=== PATIENT | male | born 1970 | race Caucasian/White ===

== ENCOUNTER 2017-10-08 19:22 | Observation (INO) | payer SELFPAY ==
[2017-10-08 19:43] VITALS: BP 186/99; PULSE 99; RESP 18; TEMP 97.7; O2SAT 97
[2017-10-08] MEDS ORDERED: METF500T PO (19:51)
[2017-10-08] MEDS ORDERED: LISI10TA3 PO (20:06)
[2017-10-08] MEDS ORDERED: SODIUM CHLOR 0.9% 1000 ML INJ 1,000 ML IV ONE ×2 (20:30→23:30)
[2017-10-08] MEDS ORDERED: ASPIRIN 81 MG CHEW TAB CHEW ONE (20:30)
[2017-10-08] MEDS ORDERED: INSULIN HUMAN REGULAR 1,000 UNITS/10 ML VIAL IV PUSH ONE (20:30)
[2017-10-08] MEDS ORDERED: SODIUM CHLORIDE 0.9% FLUSH 10 ML FLUSH IVF PRN (20:30)
[2017-10-08] MEDS ORDERED: NITROGLYCERIN 0.4 MG SL 25 TABS/BTL SL ONE (20:30)
[2017-10-08] MEDS ORDERED: ONDANSETRON ODT 4 MG TAB PO ONE (20:30)
--- NOTE | 2017-10-08 20:34 | PD ---
HPI Chief Complaint: Diabetic Time Seen by Provider: 20:26 Travel History International Travel<30 days: Yes Contact w/Intl Traveler<30days: Yes Name of Country Traveled to: [facility] Traveled to known affect area: Yes History of Present Illness HPI 47-year-old male presents to the emergency department by private transportation the care of his friend for evaluation of high blood sugar and high blood pressure and chest pain. Patient is visiting from [facility] and has been here for 1 month. Upon entry into denies states reportedly his medications were confiscated and not return to him. Patient has been off his blood pressure medication and his diabetic medication for a month and will be here for 2-3 more months. Patient has not stopped a nearby urgent care to have a prescription refill. Due to feeling flushed and not feeling well today with chest tightness and lower abdominal discomfort episode of vomiting decided to go to the store purchase a glucometer and checked his blood sugar which was identified to be 600. Patient checked it again it was 500 so decided to come to the emergency room as he was having high blood sugar did not have medication felt poorly and had chest pain and lower abdominal pain. Patient rates his discomfort as moderate. Patient is unable to identify exacerbating or alleviating factors. Patient denies hematemesis coffee-ground emesis melena; patient's had no fever chills; chest discomfort is not pleuritic in nature and is not associated with shortness of breath or hemoptysis. 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 PFSH Past Medical History Narrative Medical Hypertension diabetes; no tobacco; nursing notes reviewed Diabetes: Yes Patient Takes Glucophage: Yes Social History Alcohol Use: No Tobacco Use: No Substance Use: No Allergies-Medications (Allergen,Severity, Reaction): Coded Allergies: No Known Allergies (Unverified , 10/08/17) Reported Meds & Prescriptions Reported Meds & Active Scripts Active Reported Lisinopril 10 Mg Tab 10 Mg PO DAILY Metformin (Metformin HCl) 500 Mg Tab 500 Mg PO BIDPC Review of Systems Except as stated in HPI: all other systems reviewed are Neg General / Constitutional: No: Fever, Chills HENT: No: Congestion Cardiovascular: Positive: Chest Pain or Discomfort, No: Palpitations, Diaphoresis Respiratory: No: Shortness of Breath, Hemoptysis, Pleuritic Pain Gastrointestinal: Positive: Nausea, Vomiting, Abdominal Pain (lower), No: Hematemesis, Hematochezia Genitourinary: No: Dysuria, Flank Pain Musculoskeletal: No: Myalgias, Arthralgias, Edema, Pain Skin: No Rash Neurologic: No: Weakness, Dizziness, Syncope Psychiatric: No: Anxiety Hematologic/Lymphatic: No: Easy Bruising Physical Exam Narrative GENERAL: Well-developed well-nourished Mosotho-speaking male in no acute distress no respiratory distress SKIN: Warm and dry. HEAD: Normocephalic. EYES: No scleral icterus. No injection or drainage. NECK: Supple, trachea midline. No JVD or lymphadenopathy. CARDIOVASCULAR: Regular rate and rhythm without murmurs, gallops, or rubs. RESPIRATORY: Breath sounds equal bilaterally. No accessory muscle use. GASTROINTESTINAL: Abdomen soft, non-tender, nondistended. Readily reducible umbilical hernia. MUSCULOSKELETAL: No cyanosis, or edema. Radial dorsalis pedis pulses 2+ to palpation bilaterally. BACK: Nontender without obvious deformity. No CVA tenderness. Data Data Last Documented VS Vital Signs Date Time Temp Pulse Resp B/P (MAP) Pulse Ox O2 Delivery O2 Flow Rate FiO2 10/08/17 23:28 90 18 138/86 (103) 97 Room Air 10/08/17 19:43 97.7 Orders Orders Electrocardiogram (10/08/17 20:26) Complete Blood Count With Diff (10/08/17 20:26) Comprehensive Metabolic Panel (10/08/17 20:26) Magnesium (Mg) (10/08/17 20:26) Beta Hydroxybutyrate (Acetone) (10/08/17 20:26) Urinalysis - C+S If Indicated (10/08/17 20:26) Chest, Single Ap (10/08/17 20:26) Blood Glucose (10/08/17 20:26) Ecg Monitoring (10/08/17 20:26) Iv Access Insert/Monitor (10/08/17 20:26) Oximetry (10/08/17 20:26) NPO (10/08/17 20:26) Sodium Chloride 0.9% Flush (Ns Flush) (10/08/17 20:30) Troponin I (10/08/17 20:26) Sodium Chlor 0.9% 1000 Ml Inj (Ns 1000 M (10/08/17 20:30) Insulin Human Regular Inj (Novolin R Inj (10/08/17 20:30) Nitroglycerin Sl (Nitrostat Sl) (10/08/17 20:30) Aspirin Chew (Aspirin Chew) (10/08/17 20:30) Ondansetron Odt (Zofran Odt) (10/08/17 20:30) Lipase (10/08/17 20:26) Blood Glucose (10/08/17 20:34) Sodium Chlor 0.9% 1000 Ml Inj (Ns 1000 M (10/08/17 23:30) Ct Abd/Pel W Iv Contrast(Rout) (10/08/17 ) Iohexol 350 Inj (Omnipaque 350 Inj) (10/08/17 23:46) Basic Metabolic Panel (Bmp) (10/09/17 00:08) Troponin I (10/09/17 00:08) Ckmb (Isoenzyme) Profile (10/09/17 00:08) Electrocardiogram (10/09/17 ) Beta Hydroxybutyrate (Acetone) (10/09/17 01:09) CKMB (10/09/17 00:35) CKMB% (10/09/17 00:35) Sodium Chlor 0.9% 1000 Ml Inj (Ns 1000 M (10/09/17 02:00) Admit Order (Ed Use Only) (10/09/17 ) Cash Grain Farmer / Telemetry EARL.Q8H (10/09/17 02:00) Diet 1999 Ada Cons Carb (10/09/17 Breakfast) Activity Oob With Assistance (10/09/17 02:00) Notify Dr: Other (10/09/17 02:00) Activity Bed Rest With Brp (10/09/17 02:00) Vital Signs (Adult) Q4H (10/09/17 02:00) Cardiac Rhythm .As Directed (10/09/17 02:00) Notify Dr: Other .PRN (10/09/17 02:00) Notify Parameters (10/09/17 02:00) Resp Oxygen Nasal Cannula (10/09/17 ) Ckmb (Isoenzyme) Profile (10/09/17 03:30) Ckmb (Isoenzyme) Profile (10/09/17 06:30) Troponin I (10/09/17 03:30) Troponin I (10/09/17 06:30) Electrocardiogram (10/09/17 03:30) Electrocardiogram (10/09/17 06:30) ^ Obtain (10/09/17 02:00) Sodium Chloride 0.9% Flush (Ns Flush) (10/09/17 02:00) Sodium Chloride 0.9% Flush (Ns Flush) (10/09/17 09:00) Nitroglycerin Sl (Nitrostat Sl) (10/09/17 02:00) Cash Grain Farmer / Telemetry EARL.Q8H (10/09/17 02:00) Low Novolin-R Scale (10/09/17 08:00) Labs Laboratory Tests Test 10/08/17 20:40 10/08/17 23:30 10/09/17 00:35 White Blood Count 9.3 TH/MM3 Red Blood Count 4.70 MIL/MM3 Hemoglobin 15.4 GM/DL Hematocrit 44.3 % Mean Corpuscular Volume 94.1 FL Mean Corpuscular Hemoglobin 32.6 PG Mean Corpuscular Hemoglobin Concent 34.7 % Red Cell Distribution Width 13.6 % Platelet Count 125 TH/MM3 Mean Platelet Volume 10.1 FL Neutrophils (%) (Auto) 69.5 % Lymphocytes (%) (Auto) 15.1 % Monocytes (%) (Auto) 13.6 % Eosinophils (%) (Auto) 1.1 % Basophils (%) (Auto) 0.7 % Neutrophils # (Auto) 6.4 TH/MM3 Lymphocytes # (Auto) 1.4 TH/MM3 Monocytes # (Auto) 1.3 TH/MM3 Eosinophils # (Auto) 0.1 TH/MM3 Basophils # (Auto) 0.1 TH/MM3 CBC Comment DIFF FINAL Differential Comment Blood Urea Nitrogen 14 MG/DL 13 MG/DL Creatinine 1.12 MG/DL 0.88 MG/DL Random Glucose 485 MG/DL 297 MG/DL Total Protein 9.0 GM/DL Albumin 3.7 GM/DL Calcium Level 10.6 MG/DL 8.6 MG/DL Magnesium Level 2.1 MG/DL Alkaline Phosphatase 136 U/L Aspartate Amino Transf (AST/SGOT) 96 U/L Alanine Aminotransferase (ALT/SGPT) 133 U/L Total Bilirubin 1.7 MG/DL Sodium Level 130 MEQ/L 137 MEQ/L Potassium Level 4.1 MEQ/L 3.8 MEQ/L Chloride Level 93 MEQ/L 101 MEQ/L Carbon Dioxide Level 21.5 MEQ/L 22.3 MEQ/L Anion Gap 16 MEQ/L 14 MEQ/L Estimat Glomerular Filtration Rate 71 ML/MIN 94 ML/MIN Troponin I LESS THAN 0.02 NG/ML LESS THAN 0.02 NG/ML Lipase 482 U/L B-Hydroxybutyrate 2.27 MMOL/L 2.08 MMOL/L Urine Color YELLOW Urine Turbidity CLEAR Urine pH 5.5 Urine Specific [place] 1.040 Urine Protein TRACE mg/dL Urine Glucose (UA) 1000 mg/dL Urine Ketones 40 mg/dL Urine Occult Blood NEG Urine Nitrite NEG Urine Bilirubin NEG Urine Urobilinogen LESS THAN 2.0 MG/DL Urine Leukocyte Esterase NEG Urine RBC LESS THAN 1 /hpf Urine WBC 1 /hpf Urine Mucus FEW /lpf Microscopic Urinalysis Comment CULT NOT INDICATED Total Creatine Kinase 497 U/L Creatine Kinase MB 4.8 NG/ML Creatine Kinase MB % 1.0 % [facility] Medical Decision Making Medical Screen Exam Complete: Yes Emergency Medical Condition: Yes Medical Record Reviewed: Yes Interpretation(s) EKG normal sinus rhythm rate 80 nonspecific lateral T-wave changes EKG normal sinus rhythm rate 98 lateral T-wave flattening consider ischemia Last Impressions Chest X-Ray 10/08/172025 Signed Impressions: CONCLUSION: Negative examination. Abdomen/Pelvis CT 10/08/17 0000 Signed Impressions: CONCLUSION: 1. No acute abnormality seen. 2. Hepatic steatosis. 3. Minimal hiatal hernia. CBC & BMP Diagram 10/08/17 20:40 Total Protein 9.0 H, Albumin 3.7, Calcium Level 10.6 H, Magnesium Level 2.1, Alkaline Phosphatase 136 H, Aspartate Amino Transf (AST/SGOT) 96 H, Alanine Aminotransferase (ALT/SGPT) 133 H, Total Bilirubin 1.7 H 10/09/17 00:35 Calcium Level 8.6 # Vital Signs Date Time Temp Pulse Resp B/P (MAP) Pulse Ox O2 Delivery O2 Flow Rate FiO2 10/08/17 23:28 90 18 138/86 (103) 97 Room Air 10/08/17 21:34 20 98 Room Air 10/08/17 21:30 93 20 148/84 (105) 98 Room Air 6/2/18 19:43 97.7 99 18 186/99 (128) 97 bhb: 2.27; repeat bhb: 2.08, elevated resolving Differential Diagnosis Hyperglycemia, uncontrolled diabetes, DKA, chest pain, atypical chest pain, uncontrolled hypertension, hypertensive urgency, ACS, RI, PE Narrative Course Patient placed on library monitor with continuous pulse oximetry IV access obtained specimens collections of resulting; patient given IV fluids normal saline bolus with regular insulin 8 units IV and sublingual nitroglycerin 1 as well as aspirin 162 mg chewed and Zofran 4 mg sublingual. Specimens sent for resulting EKG ordered Chest pain improved after SL NTG Patient with chest pain with uncontrolled hypertension diabetes and dyslipidemia as risk factors male age 47; diabetes and hypertension uncontrolled as he has been off of his medication 1 month. However due to complaint of chest pain with chest pain resolving after sublingual nitroglycerin with aforementioned risk factors will admit for observation for serial cardiac enzymes and ongoing diabetic management. Patient's blood sugar responding well to initial dose of IV insulin and fluid hydration blood pressure has also normalized. Case discussed with on-call medicine service at this point time blood pressure would not be an indication for them to admit and diabetes is not indication for them to admit therefore remaining indication for observation admission is chest pain with risk factors for cardiac disease and meets [facility] protocol criterion. Will admit patient for observation for serial cardiac enzymes time for his next set of cardiac enzymes will be performed now and then will admit subsequently to chest pain center per protocol. Repeat EKG continues to show nonspecific lateral T-wave changes; repeat troponin I is less than 0.02; initial serum acetone 2.27 elevated however is decreasing to 2.08 and patient's anion gap is resolved and bicarb is in normal range on repeat BMP Patient had mild elevation of LFTs and lipase level however CT abdomen pelvis reveals no acute intra-abdominal abnormality no gallbladder wall thickening or pericholecystic fluid ductal dilatation or gallbladder dilatation and no peripancreatic edema or fluid Physician Communication Physician Communication discussed with [facility] service -- [facility] Diagnosis Primary Impression: Chest pain Additional Impressions: Diabetes HTN (hypertension) Jocelyn Neal MD Oct 08, 2017 20:33
[2017-10-08 20:57] LABS: AUTOMATED NEUTROPHIL # 6.4 TH/MM3 (1.8-7.7); BASOPHIL # 0.1 TH/MM3 (0-0.2); BASOPHIL % 0.7 % (0.0-2.0); EOSINOPHIL # 0.1 TH/MM3 (0-0.4); EOSINOPHIL % 1.1 % (0.0-4.0); HEMATOCRIT 44.3 % (39.0-51.0); HEMOGLOBIN 15.4 GM/DL (13.0-17.0); LYMPH % 15.1 % (9.0-44.0); LYMPHOCYTE # 1.4 TH/MM3 (1.0-4.8); MEAN CELL VOLUME 94.1 FL (80.0-100.0); MEAN CORPUSCULAR HEMOGLOBIN 32.6 PG (27.0-34.0); MEAN CORPUSCULAR HGB CONC 34.7 % (32.0-36.0); MEAN PLATELET VOLUME 10.1 FL (7.0-11.0); MONO % 13.6 % (0.0-8.0); MONOCYTE # 1.3 TH/MM3 (0-0.9); NEUT % 69.5 % (16.0-70.0); PLATELET COUNT 125 TH/MM3 (150-450); RED CELL DISTRIBUTION WIDTH 13.6 % (11.6-17.2); WHITE BLOOD COUNT 9.3 TH/MM3 (4.0-11.0)
[2017-10-08 21:30] VITALS: BP 148/84; PULSE 93; RESP 20; O2SAT 98
[2017-10-08 21:34] VITALS: RESP 20; O2SAT 98
[2017-10-08 21:47] LABS: ALBUMIN 3.7 GM/DL (3.4-5.0); ALKALINE PHOSPHATASE 136 U/L (45-117); ALT (GPT) 133 U/L (12-78); AST (GOT) 96 U/L (15-37); BICARBONATE 21.5 MEQ/L (21.0-32.0); BLOOD UREA NITROGEN 14 MG/DL (7-18); CALCIUM 10.6 MG/DL (8.5-10.1); CHLORIDE 93 MEQ/L (98-107); CREATININE 1.12 MG/DL (0.60-1.30); GLOMERULAR FILTRATION RATE 71 ML/MIN (>89); MAGNESIUM 2.1 MG/DL (1.5-2.5); SODIUM (NA) 130 MEQ/L (136-145); TOTAL BILIRUBIN ADULT 1.7 MG/DL (0.2-1.0); TROPONIN I LESS THAN 0.02 NG/ML (0.02-0.05)
[2017-10-08 21:50] LABS: GLUCOSE,RANDOM 485 MG/DL (74-106)
--- NOTE | 2017-10-08 21:57 | RADRPT ---
EXAM DATE: 10/08/2017 9:43 PM EDT AGE/SEX: 47 years / Male INDICATIONS: Vomiting. CLINICAL DATA: This is the patient's initial encounter. Patient reports that signs and symptoms have been present for 1 day and indicates a pain score of Nonresponsive. MEDICAL/SURGICAL HISTORY: Diabetes. . Back surgery. COMPARISON: No prior [facility] exams available for comparison. FINDINGS: A single AP view of the chest demonstrates the lungs to be symmetrically aerated without evidence of mass, infiltrate or effusion. The cardiomediastinal contours are unremarkable. Osseous structures a re intact. CONCLUSION: Negative examination. Electronically signed by: Lenin Jose MD 10/08/2017 9:56 PM EDT
[2017-10-08 23:28] VITALS: BP 138/86; PULSE 90; RESP 18; O2SAT 97
[2017-10-08] MEDS ORDERED: IOHEXOL 350 MG/ML 10 ML VIAL (for RAD DIAG) IVCONTRAST ONE (23:46)
[2017-10-09] VITALS (7 sets, daily range): BP systolic 139–158; BP diastolic 82–97; PULSE 70–82; RESP 16–19; TEMP 97–98.8; O2SAT 94–97
--- NOTE | 2017-10-09 00:06 | RADRPT ---
EXAM DATE: 10/08/2017 11:59 PM EDT AGE/SEX: 47 years / Male INDICATIONS: Abdomen pain. CLINICAL DATA: This is the patient's initial encounter. Patient reports that signs and symptoms have been present for 1 day and indicates a pain score of 7/10. MEDICAL/SURGICAL HISTORY: Diabetes mellitus type II. . ORAL CONTRAST: No oral contrast ingested. RADIATION DOSE: 14.92 CTDI (mGy) COMPARISON: No prior [facility] exams available for comparison. TECHNIQUE: Multiple contiguous axial images were obtained through the abdomen and pelvis following b olus infusion of 90 ml Omnipaque 350 (iohexol) nonionic water-soluble contrast as a single exam dos e. No oral contrast ingested. Using automated exposure control and adjustment of the mA and/or kV ac cording to patient size, the radiation dose was kept as low as reasonably achievable to obtain optima l diagnostic quality images. FINDINGS: Lower Lungs: The visualized lower lungs are clear. Liver: There is diffuse decreased attenuation to the liver. No focal hepatic lesions are seen. The ga llbladder is unremarkable. Spleen: Homogeneous density without enlargement. Pancreas: Unremarkable without mass or calcification. Kidneys: Normal in size and shape. No evidence of mass or hydronephrosis. Adrenal Glands: Unremarkable. Aorta: The aorta and proximal iliac vessels are grossly unremarkable without aneurysmal dilation. Bowel/Mesentery: There appears to be minimal hiatal hernia. There are a few scattered colonic divert icula.. The appendix is normal. Abdominal Wall: Intact. Retroperitoneum: No evidence of adenopathy in the retrocrural, para-aortic, or deep pelvic regions. Bladder: Contours are smooth. Reproductive Organs: No abnormal masses or calcifications seen. Inguinal: The inguinal region is unremarkable without evidence of adenopathy. Bony Structures: There is postsurgical change at the lower lumbar spine. CONCLUSION: 1. No acute abnormality seen. 2. Hepatic steatosis. 3. Minimal hiatal hernia. Electronically signed by: Enrique Sheridan MD 10/09/2017 12:04 AM EDT
[2017-10-09 00:56] LABS: BILIRUBIN, URINE NEG (NEG); BLOOD, URINE NEG (NEG); GLUCOSE,URINE 1000 mg/dL (NEG); KETONE, URINE 40 mg/dL (NEG); MUCUS URINE FEW /lpf (OCC); NITRITE,URINE NEG (NEG); PH, URINE 5.5 (5.0-8.5); URINE COLOR YELLOW (YELLW/STRAW); URINE LEUKOCYTE ESTERASE NEG (NEG)
[2017-10-09 01:20] LABS: BICARBONATE 22.3 MEQ/L (21.0-32.0); BLOOD UREA NITROGEN 13 MG/DL (7-18); CALCIUM 8.6 MG/DL (8.5-10.1); CHLORIDE 101 MEQ/L (98-107); CREATININE 0.88 MG/DL (0.60-1.30); GLOMERULAR FILTRATION RATE 94 ML/MIN (>89); GLUCOSE,RANDOM 297 MG/DL (74-106); SODIUM (NA) 137 MEQ/L (136-145); TROPONIN I LESS THAN 0.02 NG/ML (0.02-0.05)
[2017-10-09] MEDS ORDERED: SODIUM CHLOR 0.9% 1000 ML INJ 1,000 ML IV ONE (02:00)
[2017-10-09] MEDS ORDERED: NITROGLYCERIN 0.4 MG SL 25 TABS/BTL SL PRN (02:00)
[2017-10-09] MEDS ORDERED: SODIUM CHLORIDE 0.9% FLUSH 10 ML FLUSH IV FLUSH PRN (02:00)
[2017-10-09 04:21] LABS: TROPONIN I 0.02 NG/ML (0.02-0.05)
[2017-10-09 07:17] LABS: TROPONIN I LESS THAN 0.02 NG/ML (0.02-0.05)
[2017-10-09] MEDS: INSULIN NovoLIN REGULAR SUPPLEMENTAL SCALE SQ SCH ×4 (08:00→21:54)
[2017-10-09] MEDS ORDERED: ACETAMINOPHEN 500 MG CPLT PO PRN (08:00)
[2017-10-09] MEDS ORDERED: ASPIRIN 325 MG TAB PO SCH (09:00)
[2017-10-09] MEDS ORDERED: LISINOPRIL 10 MG TAB PO SCH (09:00)
--- NOTE | 2017-10-09 10:36 | EKG ---
Date Performed: 10/09/2017 Time Performed: 00:31:12 PTAGE: 47 years EKG: Sinus rhythm MODERATE T-WAVE ABNORMALITY, ABNORMAL ECG Left ventricular hypertrophy PREVIOUS TRACING : 10/08/2017 20.51 Since previous tracing, no significant change noted DOCTOR: Nestor Du Interpretating Date/Time 10/09/2017 10:36:11
--- NOTE | 2017-10-09 10:38 | EKG ---
Date Performed: 10/09/2017 Time Performed: 03:39:47 PTAGE: 47 years EKG: Sinus rhythm NONSPECIFIC T-WAVE ABNORMALITY BORDERLINE ECG PREVIOUS TRACING : 10/09/2017 00.31 Compared to previous tracing,T wave changes have improved. DOCTOR: Nestor Du Interpretating Date/Time 10/09/2017 10:38:22
[2017-10-09] MEDS: SODIUM CHLORIDE 0.9% FLUSH 10 ML FLUSH IV FLUSH SCH ×2 (12:14→21:54)
[2017-10-09] MEDS ORDERED: cloNIDine HCL 0.1 MG TAB PO PRN (15:00)
[2017-10-09] MEDS ORDERED: ENALAPRILAT 1.25 MG/ML VIAL IV PUSH PRN (15:00)
--- NOTE | 2017-10-09 15:02 | HHI.HP ---
[facility] Service [facility] Primary Care Physician No Primary Care Physician Admission Diagnosis chest pain; diabetes Diagnoses: (1) Diabetes Diagnosis: Principal (2) HTN (hypertension) Diagnosis: Principal Travel History International Travel<30 Days: Yes Contact w/Intl Traveler <30 Da: Yes Name of Country Traveled to: [facility] Traveled to Known Affected Are: Yes History of Present Illness Mr. Ariza is a 47 year old male. She has a past history of hypertension and diabetes. He recently moved here from [facility] about 1 month ago. Since this time he has been unable to acquire medications. He says [facility] he was on oral treatments for his diabetes and blood pressure. She also complains of mid abdominal pain. Imaging shows no acute abnormalities of this area. He does have a mild rhabdomyolysis. Etiology for his abdominal pain and rhabdomyolysis could be related to inflammation related to hyperglycemia for a long period of time. No other complaints are present today. He has not had any fevers. We discussed chest pain, he does not feel his chest is specifically involving the pain. Cardiac enzymes are negative 3. Review of Systems Constitutional: DENIES: Fatigue, Fever, Chills Eyes: DENIES: Blurred vision, Diplopia, Eye inflammation, Eye pain Ears, nose, mouth, throat: DENIES: Hearing loss, Vertigo, Nasal discharge Respiratory: DENIES: Cough, Wheezing, Shortness of breath Cardiovascular: DENIES: Chest pain, Palpitations, Syncope Gastrointestinal: COMPLAINS OF: Abdominal pain, DENIES: Black stools, Bloody stools Musculoskeletal: DENIES: Joint pain, Muscle aches, Stiffness Integumentary: DENIES: Abnormal pigmentation, Nail changes, Pruritus, Rash Hematologic/lymphatic: DENIES: Bruising, Lymphadenopathy Immunologic/allergic: DENIES: Eczema, Urticaria Neurologic: DENIES: Abnormal gait, Headache, Paresthesias Psychiatric: DENIES: Anxiety, Confusion, Hallucinations Past Family Social History Past Medical History Hypertension Diabetes mellitus type 2 Past Surgical History History of lower back surgery secondary to fracture Reported Medications Patient has been taking no medications for 2-3 months Reported Meds & Active Scripts Active Reported Lisinopril 10 Mg Tab 10 Mg PO DAILY Metformin (Metformin HCl) 500 Mg Tab 500 Mg PO BIDPC Allergies: Coded Allergies: No Known Allergies (Unverified , 10/08/17) Active Ordered Medications Administered Medications Medications (Trade) Dose Ordered Sig/Demetris Route PRN Reason Start Time Stop Time Status Last Admin Dose Admin Sodium Chloride (NS Flush) 2 ml BID IV FLUSH 10/09/17 09:00 10/09/17 12:14 Insulin Human Regular (NovoLIN R SUPPLEMENTAL SCALE) 1 ACHS SLIDING SCALE SQ 10/09/17 08:00 10/09/17 12:14 Family History Diabetes mellitus type 2 in numerous family members Social History No smoking No alcohol abuse No illicit drug abuse Physical Exam Vital Signs Vital Signs Date Time Temp Pulse Resp B/P (MAP) Pulse Ox O2 Delivery O2 Flow Rate FiO2 10/09/17 12:00 97.0 82 18 158/92 (114) 94 10/09/17 08:00 98.8 75 19 142/82 (102) 97 10/09/17 08:00 77 10/09/17 04:50 70 10/09/17 03:35 98.1 79 18 140/97 (111) 97 10/09/17 03:00 10/08/17 23:28 90 18 138/86 (103) 97 Room Air 10/08/17 21:34 20 98 Room Air 10/08/17 21:30 93 20 148/84 (105) 98 Room Air 10/08/17 19:43 97.7 99 18 186/99 (128) 97 Physical Exam GENERAL: NAD, A&Ox3 HEAD: Normocephalic. NECK: Supple, trachea midline. No lymphadenopathy. EYES: No scleral icterus. No injection or drainage. CARDIOVASCULAR: Regular rate and rhythm without murmurs, gallops, or rubs. RESPIRATORY: Breath sounds equal bilaterally. No accessory muscle use. GASTROINTESTINAL: Abdomen soft, non-tender, nondistended. MUSCULOSKELETAL: No cyanosis, or edema. SKIN: Warm and dry. NEURO: No focal neurological deficitis. Laboratory Laboratory Tests Test 10/08/17 20:40 10/08/17 23:30 10/09/17 00:35 10/09/17 03:30 White Blood Count 9.3 Red Blood Count 4.70 Hemoglobin 15.4 Hematocrit 44.3 Mean Corpuscular Volume 94.1 Mean Corpuscular Hemoglobin 32.6 Mean Corpuscular Hemoglobin Concent 34.7 Red Cell Distribution Width 13.6 Platelet Count 125 Mean Platelet Volume 10.1 Neutrophils (%) (Auto) 69.5 Lymphocytes (%) (Auto) 15.1 Monocytes (%) (Auto) 13.6 Eosinophils (%) (Auto) 1.1 Basophils (%) (Auto) 0.7 Neutrophils # (Auto) 6.4 Lymphocytes # (Auto) 1.4 Monocytes # (Auto) 1.3 Eosinophils # (Auto) 0.1 Basophils # (Auto) 0.1 CBC Comment DIFF FINAL Differential Comment Blood Urea Nitrogen 14 13 Creatinine 1.12 0.88 Random Glucose 485 297 Total Protein 9.0 Albumin 3.7 Calcium Level 10.6 8.6 Magnesium Level 2.1 Alkaline Phosphatase 136 Aspartate Amino Transf (AST/SGOT) 96 Alanine Aminotransferase (ALT/SGPT) 133 Total Bilirubin 1.7 Sodium Level 130 137 Potassium Level 4.1 3.8 Chloride Level 93 101 Carbon Dioxide Level 21.5 22.3 Anion Gap 16 14 Estimat Glomerular Filtration Rate 71 94 Troponin I LESS THAN 0.02 LESS THAN 0.02 0.02 Lipase 482 B-Hydroxybutyrate 2.27 2.08 Urine Color YELLOW Urine Turbidity CLEAR Urine pH 5.5 Urine Specific [place] 1.040 Urine Protein TRACE Urine Glucose (UA) 1000 Urine Ketones 40 Urine Occult Blood NEG Urine Nitrite NEG Urine Bilirubin NEG Urine Urobilinogen LESS THAN 2.0 Urine Leukocyte Esterase NEG Urine RBC LESS THAN 1 Urine WBC 1 Urine Mucus FEW Microscopic Urinalysis Comment CULT NOT INDICATED Total Creatine Kinase 497 457 Creatine Kinase MB 4.8 4.6 Creatine Kinase MB % 1.0 1.0 Test 10/09/17 05:57 Total Creatine Kinase 461 Creatine Kinase MB 4.7 Creatine Kinase MB % 1.0 Troponin I LESS THAN 0.02 Result Diagram: 10/08/17203910/09/17 0035 Imaging Last Impressions Chest X-Ray 10/08/172025 Signed Impressions: CONCLUSION: Negative examination. Abdomen/Pelvis CT 10/08/17 0000 Signed Impressions: CONCLUSION: 1. No acute abnormality seen. 2. Hepatic steatosis. 3. Minimal hiatal hernia. Caprini VTE Risk Assessment Caprini VTE Risk Assessment: No/Low Risk (score <= 1) Caprini Risk Assessment Model Point Value = 1 Point Value = 2 Point Value = 3 Point Value = 5 Age 41-60 Minor surgery BMI > 25 kg/m2 Swollen legs Varicose veins or History of unexplained or recurrent spontaneous Oral contraceptives or hormone replacement Sepsis (< 1 month) Serious lung disease, including pneumonia (< 1 month) Abnormal pulmonary function Acute myocardial infarction Congestive heart failure (< 1 month) History of inflammatory bowel disease Medical patient at bed rest Age 61-74 Arthroscopic surgery Major open surgery (> 45 min) Laparoscopic surgery (> 45 min) Malignancy Confined to bed (> 72 hours) Immobilizing plaster cast Central venous access Age >= 75 History of VTE Family history of VTE Factor V Leiden Prothrombin [id number] Lupus anticoagulant Anticardiolipin antibodies Elevated serum homocysteine Heparin-induced thrombocytopenia Other congenital or acquired thrombophilia Stroke (< 1 month) Elective arthroplasty Hip, pelvis, or leg fracture Acute spinal cord injury (< 1 month) Prophylaxis Regimen Total Risk Factor Score Risk Level Prophylaxis Regimen 0-1 Low Early ambulation 2 Moderate Order ONE of the following: *Sequential Compression Device (SCD) *Heparin 5000 units SQ BID 3-4 Higher Order ONE of the following medications: *Heparin 5000 units SQ TID *Enoxaparin/Lovenox 40 mg SQ daily (WT < 150 kg, CrCl > 30 mL/min) *Enoxaparin/Lovenox 30 mg SQ daily (WT < 150 kg, CrCl > 10-29 mL/min) *Enoxaparin/Lovenox 30 mg SQ BID (WT < 150 kg, CrCl > 30 mL/min) AND/OR *Sequential Compression Device (SCD) 5 or more Highest Order ONE of the following medications: *Heparin 5000 units SQ TID (Preferred with Epidurals) *Enoxaparin/Lovenox 40 mg SQ daily (WT < 150 kg, CrCl > 30 mL/min) *Enoxaparin/Lovenox 30 mg SQ daily (WT < 150 kg, CrCl > 10-29 mL/min) *Enoxaparin/Lovenox 30 mg SQ BID (WT < 150 kg, CrCl > 30 mL/min) AND *Sequential Compression Device (SCD) Assessment and Plan Problem List: (1) HTN (hypertension) ICD Code: I10 - Essential (primary) hypertension Status: Acute (2) Chest pain ICD Code: R07.9 - Chest pain, unspecified Status: Acute (3) Diabetes ICD Code: E11.9 - Type 2 diabetes mellitus without complications Status: Acute Assessment and Plan 47-year-old male admitted secondary to abdominal pain with uncontrolled diabetes and uncontrolled hypertension. Abdominal pain Rhabdomyolysis (Mild) May be secondary to prolonged hyperglycemia Treat blood sugars CT showed no acute abnormalities Follow clinically for now Follow up Troponin with AM Labs CMP in AM Uncontrolled diabetes mellitus type 2 Start metformin as a baseline treatment to see how much benefit patient has from this. Patient may need subcutaneous insulin as a treatment follow blood sugars Insulin sliding scale Diabetic diet Uncontrolled hypertension Start lisinopril Follow blood pressures DVT prophylaxis SCDs Patient is ambulatory Jose D Hayes MD Oct 09, 2017 15:02
[2017-10-09] MEDS ORDERED: GLUCAGON 1 MG/ML VIAL OTHER PRN (15:15)
[2017-10-09] MEDS ORDERED: DEXTROSE 50% IN WATER 50 ML VIAL(D50) IV PUSH PRN (15:15)
[2017-10-09] MEDS ORDERED: ACETAMINOPHEN/HYDROcodone 325 MG/10 MG TAB PO PRN (16:45)
--- NOTE | 2017-10-09 17:25 | EKG ---
Date Performed: 10/08/2017 Time Performed: 20:51:49 PTAGE: 47 years EKG: Sinus rhythm MODERATE T-WAVE ABNORMALITY, CONSIDER LATERAL ISCHEMIA ABNORMAL ECG NO PREVIOUS TRACING DOCTOR: Nestor Du Interpretating Date/Time 10/09/2017 17:24:10
[2017-10-09] MEDS: metFORMIN HCL 850 MG TAB PO SCH (19:27)
[2017-10-10] VITALS (11 sets, daily range): BP systolic 132–153; BP diastolic 76–92; PULSE 66–93; RESP 14–20; TEMP 97.6–98.6; O2SAT 96–97
[2017-10-10] MEDS: INSULIN NovoLIN REGULAR SUPPLEMENTAL SCALE SQ SCH ×6 (10:07→22:04)
[2017-10-10] MEDS: LISINOPRIL 20 MG TAB PO SCH (10:07)
[2017-10-10] MEDS: SODIUM CHLORIDE 0.9% FLUSH 10 ML FLUSH IV FLUSH SCH ×2 (10:07→21:00)
[2017-10-10] MEDS: metFORMIN HCL 850 MG TAB PO SCH ×2 (10:08→18:31)
[2017-10-10 10:21] LABS: ALBUMIN 3.6 GM/DL (3.4-5.0); AST (GOT) 112 U/L (15-37); BICARBONATE 21.4 MEQ/L (21.0-32.0); BLOOD UREA NITROGEN 15 MG/DL (7-18); CALCIUM 9.1 MG/DL (8.5-10.1); CHLORIDE 100 MEQ/L (98-107); CREATININE 0.95 MG/DL (0.60-1.30); GLOMERULAR FILTRATION RATE 86 ML/MIN (>89); GLUCOSE,RANDOM 256 MG/DL (74-106); SODIUM (NA) 136 MEQ/L (136-145)
[2017-10-10 10:23] LABS: ALT (GPT) 131 U/L (12-78)
[2017-10-10 10:24] LABS: ALKALINE PHOSPHATASE 123 U/L (45-117); TOTAL BILIRUBIN ADULT 1.2 MG/DL (0.2-1.0); TOTAL PROTEIN 8.2 GM/DL (6.4-8.2)
--- NOTE | 2017-10-10 15:36 | PD.CONS ---
HPI History of Present Illness This is a 47 year old M with PMH significant for HTN and DM who has been off of his medications for approximately a month, he is visiting from [facility] and has been here for a month and reports [place] and has not been returned to him. He presented to the ER yesterday for evaluation of high blood sugar and high blood pressure. According to ER notes was also complaining of chest pain at that time, 3 sets of cardiac enzymes have been negative. Our service has been consulted to evaluate patient for elevated LFTs. Pt denies known history of liver issues. Reports ETOH use is sporadic sometimes has a beer daily then will go days without having any alcohol , last beer was ten days ago. Denies history of blood transfusions, IV drug use , and high risk sexual behavior. Denies family history of liver issues. Reports some nausea and vomiting that began three days ago and lasted for two days. Noticed a small amount of blood in the emesis after retching. Denies constipation, diarrhea, blood in stool. Pt also complaining of abdominal pain, points to his lower abdomen but seems tender diffusely to palpation. Has never had EGD or colonoscopy. (Mattie Johnson) PFSH Past Medical History Hypertension Diabetes mellitus type 2 Past Surgical History History of lower back surgery secondary to fracture (Mattie Johnson) Coded Allergies: No Known Allergies (Unverified , 10/08/17) Family History Diabetes mellitus type 2 in numerous family members Social History No smoking Occasional alcohol use No illicit drug abuse (Mattie Johnson) Review of Systems Gastrointestinal: COMPLAINS OF: Abdominal pain, Nausea, Vomiting, Hematemesis, DENIES: Black stools, Bloody stools, Constipation, Diarrhea, Difficulty Swallowing, Anorexia, Odynophagia, Swelling of Abdomen, Heartburn (Mattie Jonhson) GI Exam Vitals I&O Vital Signs Date Time Temp Pulse Resp B/P (MAP) Pulse Ox O2 Delivery O2 Flow Rate FiO2 10/10/17 11:32 98.1 93 20 153/91 (111) 96 10/10/17 09:55 69 10/10/17 08:35 97.6 84 20 141/92 (108) 97 10/10/17 07:42 21 10/10/17 04:40 98.6 77 14 146/86 (106) 97 10/10/17 02:47 70 10/10/17 01:06 97.9 78 16 132/82 (99) 96 10/09/17 21:06 97.9 79 16 147/91 (109) 96 10/09/17 19:27 18 10/09/17 17:00 77 10/09/17 16:00 97.9 81 18 139/91 (107) 95 I/O 10/09/17 10/09/17 10/09/17 10/10/17 10/10/17 10/10/17 07:00 15:00 23:00 07:00 15:00 23:00 Intake Total 2000 ml 600 ml Balance 2000 ml 600 ml Intake Oral 600 ml IV Total 2000 ml # Voids 3 # Bowel Movements 0 Imaging Last Impressions Chest X-Ray 10/08/172025 Signed Impressions: CONCLUSION: Negative examination. Abdomen/Pelvis CT 10/08/17 0000 Signed Impressions: CONCLUSION: 1. No acute abnormality seen. 2. Hepatic steatosis. 3. Minimal hiatal hernia. Laboratory Test 10/10/17 09:15 10/10/17 11:52 Blood Urea Nitrogen 15 MG/DL Creatinine 0.95 MG/DL Random Glucose 256 MG/DL Total Protein 8.2 GM/DL Albumin 3.6 GM/DL Calcium Level 9.1 MG/DL Alkaline Phosphatase 123 U/L Aspartate Amino Transf (AST/SGOT) 112 U/L Alanine Aminotransferase (ALT/SGPT) 131 U/L Total Bilirubin 1.2 MG/DL Sodium Level 136 MEQ/L Potassium Level 3.8 MEQ/L Chloride Level 100 MEQ/L Carbon Dioxide Level 21.4 MEQ/L Anion Gap 15 MEQ/L Estimat Glomerular Filtration Rate 86 ML/MIN Physical Examination HEENT: Normocephalic; atraumatic CHEST: Even/unlabored CARDIAC: RRR ABDOMEN: Distended, soft, diffusely tender, bowel sounds active EXTREMITIES: No clubbing, cyanosis, or edema. SKIN: Normal; no rash; no jaundice. 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 (Mattie Johnson) Assessment and Plan Plan Assessment: - Elevated LFTs AST-112 ALT-131 Alk phos-123 T bili-1.2 Pt denies known history of liver issues, denies family history of liver issues. Occasional ETOH, last alcoholic drink was 10 days ago. Denies history of blood transfusion, IV drug use, high risk sexual behaviors. Complaining of abdominal pain, points to lower abdomen but diffusely tender to palpation. Associated nausea and vomiting began three days ago and lasted two days, reports small amount of blood in emesis after retching. Denies constipation, diarrhea, blood in stool. Of note, is here on vacation from [facility], has been here approximately one month Denies previous EGD or colonoscopy CT abdomen and pelvis W IV contrast --> No acute abnormality seen. Hepatic steatosis. Minimal hiatal hernia. - Possible melena- pt initially reported black stool and then later denied this. Hemoccult stool ordered, pending. H/H stable at this time. - DM with uncontrolled BGL on arrival- has not been on DM for past month - HTN per attending Plan: Hepatitis panel US liver Will work up for other etiologies ? secondary to steatohepatitis Recommend BGL control per attending Nausea and vomiting likely secondary to uncontrolled BGL- antiemetics PRN Lipid panel Hemoccult stool ? need for EGD if Hemoccult positive or no clear etiology for pain Further recommendations based on clinical course and results of above Pt has been seen and examined by myself and Dr. Montejo and this note is written on his behalf (Mattie Johnson) Physician Comments Seen and examined, plan discussed with the patient. Will follow up with you. Thank you for the consult. (Jacki Montejo MD) Mattie Johnson Oct 10, 2017 15:36 Jacki Montejo MD Oct 10, 2017 21:21
--- NOTE | 2017-10-10 15:43 | HHI.PR ---
Subjective Remarks Follow-up for uncontrolled diabetes, abdominal pain, elevated LFTs. The patient is mostly Pashto speaking therefore used translation line via phone. The patient reports continued constant moderate diffuse lower abdominal burning pain , with associated nausea but no vomiting. He is tolerating some oral intake. He reports dark stools but not black tarry or any bright red blood. Denies fevers/ chills. He reports polyuria but denies any dysuria. Denies any other medical complaints at this time. He states he was only on oral medications for diabetes and hypertension in [facility] and has never required any insulin. Objective Vitals Vital Signs Date Time Temp Pulse Resp B/P (MAP) Pulse Ox O2 Delivery O2 Flow Rate FiO2 10/10/17 11:32 98.1 93 20 153/91 (111) 96 10/10/17 09:55 69 10/10/17 08:35 97.6 84 20 141/92 (108) 97 10/10/17 07:42 21 10/10/17 04:40 98.6 77 14 146/86 (106) 97 10/10/17 02:47 70 10/10/17 01:06 97.9 78 16 132/82 (99) 96 10/09/17 21:06 97.9 79 16 147/91 (109) 96 10/09/17 19:27 18 10/09/17 17:00 77 10/09/17 16:00 97.9 81 18 139/91 (107) 95 I/O 10/09/17 10/09/17 10/09/17 10/10/17 10/10/17 10/10/17 06:59 14:59 22:59 06:59 14:59 22:59 Intake Total 2000 ml 600 ml Balance 2000 ml 600 ml Intake Oral 600 ml IV Total 2000 ml # Voids 3 # Bowel Movements 0 Result Diagram: 10/08/17203910/10/17 0915 Imaging Last Impressions Chest X-Ray 10/08/172025 Signed Impressions: CONCLUSION: Negative examination. Abdomen/Pelvis CT 10/08/17 0000 Signed Impressions: CONCLUSION: 1. No acute abnormality seen. 2. Hepatic steatosis. 3. Minimal hiatal hernia. Objective Remarks GENERAL: Well-nourished, well-developed pleasant middle-aged Pashto-speaking male patient in [facility]. SKIN: Warm and dry. No rash. HEENT: Normocephalic. Atraumatic. Pupils equal and round. Mucous membranes pink and moist. NECK: Supple. Trachea midline. CARDIOVASCULAR: Regular rate and rhythm. No murmur appreciated. RESPIRATORY: No accessory muscle use. Clear to auscultation. Breath sounds equal bilaterally. GASTROINTESTINAL: Abdomen soft, nondistended, mild diffuse lower abdominal TTP. Normoactive bowel sounds x4. MUSCULOSKELETAL: No obvious deformities. Extremities without clubbing, cyanosis , or edema. NEUROLOGICAL: Awake and alert. No obvious cranial nerve deficits. Motor grossly within normal limits. Moving all extremities spontaneously. Normal speech. PSYCHIATRIC: Appropriate mood and affect; insight and judgment normal. Medications and IVs Current Medications Medications (Trade) Dose Ordered Sig/Demetris Route Start Time Stop Time Status Last Admin (NS Flush) 2 ml UNSCH PRN IV FLUSH 10/09/17 02:00 (NS Flush) 2 ml BID IV FLUSH 10/09/17 09:00 10/10/17 10:07 (Nitrostat Sl) 0.4 mg Q5M PRN SL 10/09/17 02:00 (NovoLIN R SUPPLEMENTAL SCALE) 1 ACHS SLIDING SCALE SQ 10/09/17 08:00 10/10/17 13:30 (Glucophage) 850 mg BIDPC PO 10/09/17 18:00 10/10/17 10:08 (Prinivil) 20 mg DAILY PO 10/10/17 09:00 10/10/17 10:07 (Catapres) 0.1 mg Q6H PRN PO 10/09/17 15:00 (Vasotec Inj) 1.25 mg Q6H PRN IV PUSH 10/09/17 15:00 (D50w (Vial) Inj) 50 ml UNSCH PRN IV PUSH 10/09/17 15:15 (Glucagon Inj) 1 mg UNSCH PRN OTHER 10/09/17 15:15 ([place] 5-325 Mg) 1 tab Q4H PRN PO 10/09/17 16:45 ([place] 10-325 Mg) 1 tab Q4H PRN PO 10/09/17 16:45 10/09/17 17:25 A/P Problem List: (1) HTN (hypertension) ICD Code: I10 - Essential (primary) hypertension Status: Acute (2) Chest pain ICD Code: R07.9 - Chest pain, unspecified Status: Acute (3) Diabetes ICD Code: E11.9 - Type 2 diabetes mellitus without complications Status: Acute Assessment and Plan 47-year-old male from [facility] with history of hypertension and diabetes, not on medications 1 month, presents with abdominal pain and hyperglycemia Uncontrolled diabetes with hyperglycemia: BG 485 upon arrival. Patient moved here from [facility] 1 month ago and has been unable to obtain medications. He states he did not require insulin in [facility], was only on oral medications. 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 Possibly gastroparesis with uncontrolled diabetes. Possible mild pancreatitis, lipase 482. -CT abdomen reviewed, no acute findings, shows hepatic steatosis and minimal hiatal hernia -Check abdominal U/S -Repeat lipase -Consider gastric emptying study? -Check stool hemoccult -Supportive treatment with IVF, antiemetics prn, pain control prn -Consult GI Transaminitis: unclear etiology -CT abdomen showing hepatic steatosis -Checking abdominal U/S -Check hepatitis panel -GI consulted, appreciate recommendations Hypertension: uncontrolled -started on lisinopril 20mg daily -IV Vasotec prn -BP better controlled, continue to monitor DVT Prophylaxis: patient is ambulatory Discharge Planning Discharge pending further clinical improvement of blood glucose and abdominal pain. Await abdominal U/S and GI evaluation. Roseanna Ngo PA-C Oct 10, 2017 3:43 pm
[2017-10-10 16:16] LABS: HEMOGLOBIN A1C 10.1 % (4.3-6.0)
[2017-10-10 18:49] LABS: % SATURATION IRON PROFILE 11.2 % (20-50); CHOLESTEROL 248 MG/DL (120-200); IRON (FE) 34 MCG/DL (65-175); TOTAL IRON BINDING CAPACITY 304 MCG/DL (250-450)
[2017-10-10 18:52] LABS: FERRITIN 500 NG/ML (26-388); LDL CHOLESTEROL 174 MG/DL (0-99); TRIGLYCERIDES 172 MG/DL (42-150)
[2017-10-10] MEDS ORDERED: INSULIN DETEMIR 100 UNITS/ML VIAL SQ SCH (21:00)
--- NOTE | 2017-10-10 21:32 | RADRPT ---
EXAM DATE: 10/10/2017 7:57 PM EDT AGE/SEX: 47 years / Male INDICATIONS: Abdominal pain with nausea and vomiting. CLINICAL DATA: This is the patient's subsequent encounter. Patient reports that signs and symptoms h ave been present for 1 day and indicates a pain score of 1/10. MEDICAL/SURGICAL HISTORY: . Hypertension. Diabetic. . Back surgery. COMPARISON: No prior [facility] exams available for comparison. MEASUREMENTS: Liver:__ 19.7 cm. Common Bile Duct:___ 4mm. Right Kidney:___11.9 x 5.7 x 6.1 cm . Left Kidney:___11.6 x 6.6 x 6.2 cm . Spleen:___12.2 . Aorta: The proximal portion measures 2.5 cm maximal. FINDINGS: Liver: Coarse echotexture suggesting fatty change or diffuse hepatocellular process. Portal Vein: Hepatopedal flow seen in portal vein. Common Duct: No intraluminal mass or stone visualized. Gallbladder: Demonstrates no wall thickening or pericholecystic fluid. No stones visualized. Gallbl adder Wall: 2 mm Pancreas: Not well visualized. Right Kidney: No mass or hydronephrosis Left Kidney: No mass or hydronephrosis. Ascites: None Pleural Effusion: None Spleen: No focal lesion. Aorta: Non aneurysmal. IVC: Within normal limits CONCLUSION: 1. Fatty liver enlarged to almost 20 cm. No free fluid. No hydronephrosis. No acute findings. No gal lstones. Electronically signed by: Ankush Meyers MD 10/10/2017 9:30 PM EDT
[2017-10-10] MEDS: ACETAMINOPHEN/HYDROcodone 325 MG/5 MG TAB PO PRN (22:03)
[2017-10-11] VITALS (13 sets, daily range): BP systolic 123–142; BP diastolic 75–92; PULSE 60–97; RESP 15–18; TEMP 97.7–98.9; O2SAT 95–99
[2017-10-11 07:10] LABS: AUTOMATED NEUTROPHIL # 5.7 TH/MM3 (1.8-7.7); BASOPHIL # 0.1 TH/MM3 (0-0.2); BASOPHIL % 0.8 % (0.0-2.0); EOSINOPHIL # 0.1 TH/MM3 (0-0.4); EOSINOPHIL % 1.2 % (0.0-4.0); HEMATOCRIT 46.5 % (39.0-51.0); LYMPH % 19.8 % (9.0-44.0); LYMPHOCYTE # 1.8 TH/MM3 (1.0-4.8); MEAN CELL VOLUME 95.2 FL (80.0-100.0); MEAN CORPUSCULAR HEMOGLOBIN 32.8 PG (27.0-34.0); MEAN CORPUSCULAR HGB CONC 34.5 % (32.0-36.0); MEAN PLATELET VOLUME 9.8 FL (7.0-11.0); MONO % 15.3 % (0.0-8.0); MONOCYTE # 1.4 TH/MM3 (0-0.9); NEUT % 62.9 % (16.0-70.0); PLATELET COUNT 137 TH/MM3 (150-450); RED BLOOD COUNT 4.88 MIL/MM3 (4.50-5.90); RED CELL DISTRIBUTION WIDTH 13.9 % (11.6-17.2); WHITE BLOOD COUNT 9.1 TH/MM3 (4.0-11.0)
[2017-10-11 07:39] LABS: ALBUMIN 3.3 GM/DL (3.4-5.0); AST (GOT) 80 U/L (15-37); BICARBONATE 24.1 MEQ/L (21.0-32.0); BLOOD UREA NITROGEN 16 MG/DL (7-18); CALCIUM 9.3 MG/DL (8.5-10.1); CHLORIDE 101 MEQ/L (98-107); CREATININE 1.06 MG/DL (0.60-1.30); GLOMERULAR FILTRATION RATE 76 ML/MIN (>89); GLUCOSE,RANDOM 254 MG/DL (74-106); SODIUM (NA) 136 MEQ/L (136-145)
[2017-10-11 07:40] LABS: ALT (GPT) 126 U/L (12-78)
[2017-10-11 07:42] LABS: ALKALINE PHOSPHATASE 119 U/L (45-117); TOTAL BILIRUBIN ADULT 0.9 MG/DL (0.2-1.0); TOTAL PROTEIN 8.2 GM/DL (6.4-8.2)
[2017-10-11] MEDS: metFORMIN HCL 850 MG TAB PO SCH ×2 (09:30→17:33)
[2017-10-11] MEDS: INSULIN NovoLIN REGULAR SUPPLEMENTAL SCALE SQ SCH ×4 (09:40→21:31)
[2017-10-11] MEDS: SODIUM CHLORIDE 0.9% FLUSH 10 ML FLUSH IV FLUSH SCH ×2 (09:40→21:30)
[2017-10-11] MEDS: LISINOPRIL 20 MG TAB PO SCH (09:40)
[2017-10-11] MEDS: ACETAMINOPHEN/HYDROcodone 325 MG/5 MG TAB PO PRN ×2 (09:42→21:32)
[2017-10-11] MEDS ORDERED: INSULIN DETEMIR 100 UNITS/ML VIAL SQ ONE (11:30)
--- NOTE | 2017-10-11 11:53 | HHI.PR ---
Subjective Remarks Follow up on patient with uncontrolled DM, abdominal pain, elevated LFTs. Patient seen and examined. He is Indian speaking and the [employer] translation line was utilized to communicate with the patient. Patient reports nausea this morning with breakfast. He denies any vomiting. He denies any fever or chills but states he occasionally breaks out in sweats for no reason. He continues to have complaints of diffuse abdominal pain with burning lower abdominal pain. He denies any dysuria. He reports BM yesterday morning that was dark but denies any blood or black tarry stools. He denies any chest pain or shortness of breath. Objective Vitals Vital Signs Date Time Temp Pulse Resp B/P (MAP) Pulse Ox O2 Delivery O2 Flow Rate FiO2 10/11/17 09:46 98.9 97 18 142/82 (102) 99 10/11/17 07:03 82 10/11/17 03:25 98.0 73 15 130/79 (96) 97 10/11/17 03:15 66 10/11/17 00:03 72 10/10/17 23:12 97.8 79 17 136/76 (96) 97 10/10/17 20:15 98.5 92 16 141/81 (101) 96 10/10/17 20:05 66 10/10/17 17:18 86 10/10/17 15:56 98.5 91 20 134/88 (103) 97 I/O 10/10/17 10/10/17 10/10/17 10/11/17 10/11/17 10/11/17 07:00 15:00 23:00 07:00 15:00 23:00 # Voids 1 Result Diagram: 10/11/1724 10/11/17623 Imaging Last Impressions Abdomen Ultrasound 10/10/17 0000 Signed Impressions: CONCLUSION: 1. Fatty liver enlarged to almost 20 cm. No free fluid. No hydronephrosis. No acute findings. No gallstones. Chest X-Ray 10/08/172025 Signed Impressions: CONCLUSION: Negative examination. Abdomen/Pelvis CT 10/08/17 0000 Signed Impressions: CONCLUSION: 1. No acute abnormality seen. 2. Hepatic steatosis. 3. Minimal hiatal hernia. Objective Remarks GENERAL: Well-nourished, well-developed pleasant middle-aged Indian-speaking male patient in [place]. Awake and alert. SKIN: Warm and dry. No rash. HEENT: Normocephalic. Atraumatic. Pupils equal and round. EOMI. No sclera icterus. No nasal drainage. Mucous membranes pink and moist. NECK: Supple. Trachea midline. CARDIOVASCULAR: Regular rate and rhythm. No murmur appreciated. RESPIRATORY: Nondistended. Clear to auscultation. Breath sounds equal bilaterally. GASTROINTESTINAL: Abdomen soft, nondistended, mild diffuse tenderness to palpation but moreso over the epigastric area. Normoactive bowel sounds x4. MUSCULOSKELETAL: No obvious deformities. Extremities without clubbing, cyanosis , or edema. NEUROLOGICAL: Awake and alert. No obvious cranial nerve deficits. Motor grossly within normal limits. Moving all extremities spontaneously. Normal speech. PSYCHIATRIC: Appropriate mood and affect; insight and judgment normal. Procedures None A/P Problem List: (1) HTN (hypertension) ICD Code: I10 - Essential (primary) hypertension Status: Acute (2) Chest pain ICD Code: R07.9 - Chest pain, unspecified Status: Acute (3) Diabetes ICD Code: E11.9 - Type 2 diabetes mellitus without complications Status: Acute Assessment and Plan 47-year-old male from [facility] with history of hypertension and diabetes, not on medications 1 month, presents with abdominal pain and hyperglycemia Uncontrolled diabetes with hyperglycemia: BG 485 upon arrival. Patient moved here from [facility] 1 month ago and has been unable to obtain medications. He states he did not require insulin in [facility], was only on oral medications. HgbA1c 10.1 -BS still running in mid to high 200s. Increase to Levemir 10u BID. 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 Possibly gastroparesis with uncontrolled diabetes. Possible mild pancreatitis, lipase 482. Repeat lipase 356 CT abdomen reviewed, no acute findings, shows hepatic steatosis and minimal hiatal hernia. Abd US enlarged fatty liver. -Consider gastric emptying study? Will defer to GI -Check stool hemoccult - pending specimen -Supportive treatment with IVF, antiemetics prn, pain control prn Transaminitis: unclear etiology LFTs trending down CT abdomen showing hepatic steatosis Abd US shows fatty liver enlarged to 20cm Hepatitis panel neg -GI following, appreciate recommendations. Workup in progress. Hypertension: uncontrolled BP better controlled -continue on lisinopril 20mg daily -IV Vasotec prn Dyslipidemia Tg 172, Chol 248, LDL 174 -recommended lifestyle modifications to include regular exercise program, dietary changes -patients 10yr risk of cardiovascular event is 10.2%, high dose statin recommended but unable to initiate statin therapy at this time 2/2 elevated LFTs -patient will need to follow up with PCP as outpatient to manage his dyslipidemia and possibly start statin medication if LFTs return to normal DVT Prophylaxis: patient is ambulatory Discharge Planning Not ready for discharge. Discharge pending GI workup/clearance and improved BS control Khushboo Preston Oct 11, 2017 11:53
[2017-10-11] MEDS ORDERED: DOCUSATE SODIUM 50 MG/SENNA 8.6 MG TAB PO ONE (12:00)
--- NOTE | 2017-10-11 13:43 | HHI.GIFU ---
Subjective Remarks Shuttle Filler service used Pt reports continued pain in his lower abdomen, states pain is constant but intermittently more severed Described as a burning sensation and bothersome pain Some nausea this morning, also has been having nausea for the past 10 days when the pain began Denies emesis Last BM was yesterday morning, states stool has been brown, denies black and bloody stools (Mattie Johnson) Objective Vitals I&O Vital Signs Date Time Temp Pulse Resp B/P (MAP) Pulse Ox O2 Delivery O2 Flow Rate FiO2 10/11/17 12:33 98.9 91 18 133/84 (100) 95 10/11/17 11:27 86 10/11/17 09:46 98.9 97 18 142/82 (102) 99 10/11/17 07:03 82 10/11/17 03:25 98.0 73 15 130/79 (96) 97 10/11/17 03:15 66 10/11/17 00:03 72 10/10/17 23:12 97.8 79 17 136/76 (96) 97 10/10/17 20:15 98.5 92 16 141/81 (101) 96 10/10/17 20:05 66 10/10/17 17:18 86 10/10/17 15:56 98.5 91 20 134/88 (103) 97 I/O 10/10/17 10/10/17 10/10/17 10/11/17 10/11/17 10/11/17 07:00 15:00 23:00 07:00 15:00 23:00 # Voids 1 Laboratory Laboratory Tests Test 10/10/17 17:55 10/11/17 06:24 Iron Level 34 Total Iron Binding Capacity 304 Percent Iron Saturation 11.2 Ferritin 500 Triglycerides Level 172 Cholesterol Level 248 LDL Cholesterol 174 HDL Cholesterol 40.0 Cholesterol/HDL Ratio 6.20 Hepatitis A IgM Antibody NONREACTIVE Hepatitis B Surface Antigen NONREACTIVE Hepatitis B Core IgM Antibody NONREACTIVE Hepatitis C IgG Antibody NONREACTIVE White Blood Count 9.1 Red Blood Count 4.88 Hemoglobin 16.0 Hematocrit 46.5 Mean Corpuscular Volume 95.2 Mean Corpuscular Hemoglobin 32.8 Mean Corpuscular Hemoglobin Concent 34.5 Red Cell Distribution Width 13.9 Platelet Count 137 Mean Platelet Volume 9.8 Neutrophils (%) (Auto) 62.9 Lymphocytes (%) (Auto) 19.8 Monocytes (%) (Auto) 15.3 Eosinophils (%) (Auto) 1.2 Basophils (%) (Auto) 0.8 Neutrophils # (Auto) 5.7 Lymphocytes # (Auto) 1.8 Monocytes # (Auto) 1.4 Eosinophils # (Auto) 0.1 Basophils # (Auto) 0.1 CBC Comment DIFF FINAL Differential Comment Blood Urea Nitrogen 16 Creatinine 1.06 Random Glucose 254 Total Protein 8.2 Albumin 3.3 Calcium Level 9.3 Alkaline Phosphatase 119 Aspartate Amino Transf (AST/SGOT) 80 Alanine Aminotransferase (ALT/SGPT) 126 Total Bilirubin 0.9 Sodium Level 136 Potassium Level 3.7 Chloride Level 101 Carbon Dioxide Level 24.1 Anion Gap 11 Estimat Glomerular Filtration Rate 76 Lipase 356 Imaging Last Impressions Abdomen Ultrasound 10/10/17 0000 Signed Impressions: CONCLUSION: 1. Fatty liver enlarged to almost 20 cm. No free fluid. No hydronephrosis. No acute findings. No gallstones. Chest X-Ray 10/08/172025 Signed Impressions: CONCLUSION: Negative examination. Abdomen/Pelvis CT 10/08/17 0000 Signed Impressions: CONCLUSION: 1. No acute abnormality seen. 2. Hepatic steatosis. 3. Minimal hiatal hernia. Physical Exam HEENT: Normocephalic; atraumatic CHEST: Even/unlabored CARDIAC: RRR ABDOMEN: Soft, nondistended, lower abdominal tenderness, bowel sounds active EXTREMITIES: No clubbing, cyanosis, or edema. SKIN: Normal; no rash; no jaundice. PALLET RECTIFIER: Alert and oriented times three. (Mattie Johnson) Assessment and Plan Plan Assessment: - Elevated LFTs AST-112 ALT-131 Alk phos-123 T bili-1.2 Pt denies known history of liver issues. Occasional ETOH, has been drinking some alcohol over the past couple days, but denies regular use. Denies history of blood transfusion, IV drug use, high risk sexual behaviors. Of note, is here on vacation from [facility], has been here approximately one month Father from liver issues, but states related to alcohol. Denies previous EGD or colonoscopy CT abdomen and pelvis W IV contrast --> No acute abnormality seen. Hepatic steatosis. Minimal hiatal hernia. Abdomen US (10/10) Fatty liver enlarged to almost 20 cm. No free fluid. No hydronephrosis. No acute findings. No gallstones. - Abdominal pain- Reports lower abdominal pain has been constant for the past 10 days with intermittent moments of increasing intensity, describes as a burning sensation and bothering pain. Associated nausea for the past 10 days, denies emesis. States BMs have been brown, denies blood in stool and black, tarry stools. - Acid reflux and heartburn- tried OTC Merissa-seltzer with no relief - DM with uncontrolled BGL on arrival- has not been on DM for past month - HTN per attending Plan: EGD and colonoscopy tomorrow Obtain consent Clear liquids today Golytely prep NPO after MN Monitor LFTs Control of BGL Treat hyperlipidemia per attending Further recommendations based on findings of above and clinical course Pt has been seen and examined by myself and Dr. Montejo and this note is written on his behalf (Mattie Johnson) Physician Comments As above, will arrange for EGD and Colonoscopy in AM. Further recommendations to follow based on above. (Jacki Montejo MD) Mattie Johnson Oct 11, 2017 13:43 Jacki Montejo MD Oct 11, 2017 14:20
[2017-10-11] MEDS ORDERED: PEG (High)/E-LYTE SOLN 4000 ML BTL PO ONE (16:00)
[2017-10-11] MEDS ORDERED: INSULIN DETEMIR 100 UNITS/ML VIAL SQ SCH (21:00)
[2017-10-11] MEDS: DOCUSATE SODIUM 50 MG/SENNA 8.6 MG TAB PO SCH (21:31)
[2017-10-12 03:59] VITALS: BP 120/72; PULSE 74; RESP 16; TEMP 97.8; O2SAT 97
[2017-10-12] MEDS ORDERED: POVIDONE IODINE 5% (ANTISEPSIS KIT) 4 APPLICATIONS EACH NARE PRN (06:45)
[2017-10-12] MEDS ORDERED: CHLORHEXIDINE GLUCONATE 2 % 1 PACK (2 CLOTHS) TOPICAL PRN (06:45)
[2017-10-12] MEDS ORDERED: SODIUM CHLORID 0.9% 500 ML IV PRN (06:45)
[2017-10-12] MEDS ORDERED: LACTATED RINGER'S 1000 ML IV PRN (06:45)
[2017-10-12] MEDS: INSULIN NovoLIN REGULAR SUPPLEMENTAL SCALE SQ SCH ×2 (08:00→13:43)
[2017-10-12 08:22] VITALS: BP 121/76; PULSE 87; RESP 20; TEMP 97.7; O2SAT 97
[2017-10-12] MEDS: SODIUM CHLORIDE 0.9% FLUSH 10 ML FLUSH IV FLUSH SCH (08:38)
[2017-10-12] MEDS: LISINOPRIL 20 MG TAB PO SCH (08:38)
[2017-10-12] MEDS: DOCUSATE SODIUM 50 MG/SENNA 8.6 MG TAB PO SCH (08:38)
[2017-10-12 11:50] LABS: ALPHA-1-ANTITRYPSIN 135 mg/dL (100 - 190)
[2017-10-12] MEDS ORDERED: PHENYLEPH/NS 1000 MCG/10 ML SYR IV ONE (12:00)
[2017-10-12] MEDS ORDERED: PROPOFOL 200 MG/20 ML AMP IV ONE (12:00)
--- NOTE | 2017-10-12 12:06 | GIPROC ---
[facility] [address] [facility]. [facility], [address] EGD PROCEDURE REPORT EXAM DATE: 10/12/2017 PATIENT NAME: Buddy Ariza MR #: [id number] BIRTHDATE: 1970 ATTENDING: Jacki Montejo MD ORDER #: [id number] OIL RIGGER: Tom Bennett and Tiarra Moreland STATUS: inpatient INDICATIONS: The patient is a 47 yr old male here for an EGD due to vomiting and nausea PROCEDURE PERFORMED: EGD w/ biopsy MEDICATIONS: None and Per Anesthesia. TOPICAL ANESTHETIC: none CONSENT: The patient understands the risks and benefits of the procedure and understands that these risks include, but are not limited to: sedation, allergic reaction, infection, perforation and/or bleeding. Alternative means of evaluation and treatment include, among others: physical exam, x-rays, and/or surgical intervention. The patient elects to proceed with this endoscopic procedure. medical equipment was checked for proper function. Hand hygiene and appropriate measures for infection prevention was taken. After the risks, benefits and alternatives of the procedure were thoroughly explained, Informed consent was verified, confirmed and timeout was successfully executed by the treatment team. The patient was anesthetized with topical anesthesia and the EC-3490Li (Pedi C) endoscope was introduced through the mouth and advanced to the second portion of the duodenum. Retroflexion was performed and was normal The gastroscope was then slowly withdrawn and removed. ESOPHAGUS: A small hiatal hernia was noted. STOMACH: There was mild gastritis in the gastric antrum. Multiple biopsies were performed using cold forceps. Sample sent for histology. DUODENUM: Moderate duodenal inflammation was found in the duodenal bulb. ADVERSE EVENTS: There were no complications. IMPRESSIONS: 1. Small hiatal hernia 2. There was mild gastritis in the gastric antrum; multiple biopsies were performed 3. Duodenal inflammation was found in the duodenal bulb 4. Retroflexion was performed and was normal RECOMMENDATIONS: 1. Await biopsy results. Biopsy results will not be ready for 7-10 days. If you don't hear from us in two weeks, call our office for biopsy results. 2. Continue PPI PATIENT CONDITION: stable DISPOSITION: Observation REPEAT EXAM: NONE Jacki Montejo MD eSigned: Jacki Montejo MD 10/12/2017 12:05 PM cc: PATIENT NAME: Buddy Ariza MR#: [id number]
--- NOTE | 2017-10-12 12:09 | GIPROC ---
[facility] [address] [facility]. [facility], [address] COLONOSCOPY PROCEDURE REPORT EXAM DATE: 10/12/2017 PATIENT NAME: Buddy Ariza MR #: [id number] BIRTHDATE: 1970 ENDOSCOPIST: Jacki Montejo MD ORDER #: [id number] BOTTLE GAUGER: Tom Bennett and Tiarra Moreland STATUS: inpatient INDICATIONS: The patient is a 47 yr old male here for a colonoscopy due to abdominal pain PROCEDURE PERFORMED: Colonoscopy with polypectomy MEDICATIONS: None and Per Anesthesia. PREP QUALITY: fair PREP TYPE:GoLytely ESTIMATED BLOOD LOSS: None CONSENT: The patient understands the risks and benefits of the procedure and understands that these risks include, but are not limited to: sedation, allergic reaction, infection, perforation and/or bleeding. Alternative means of evaluation and treatment include, among others: physical exam, x-rays, and/or surgical intervention. The patient elects to proceed with this endoscopic procedure. medical equipment was checked for proper function. Hand hygiene and appropriate measures for infection prevention was taken. After the risks, benefits and alternatives of the procedure were thoroughly explained, Informed consent was verified, confirmed and timeout was successfully executed by the treatment team. A digital exam revealed no abnormalities of the rectum The Pentax EC-3490Li endoscope was introduced through the anus and advanced to the cecum, which was identified by both the appendix and ileocecal valve. The instrument was then slowly withdrawn as the colon was fully examined. COLON FINDINGS: Diverticulum was found in the sigmoid colon. The opening was medium sized. A polypoid shaped pedunculated polyp measuring 10 mm in size was found in the ascending colon. A polypectomy was performed using snare cautery. The resection was complete and the polyp tissue was completely retrieved. Small internal hemorrhoids were found. Retroflexed views revealed no abnormalities The scope was then completely withdrawn from the patient and the procedure terminated. PROCEDURE WITHDRAWAL TIME:10minutes ADVERSE EVENTS: There were no complications. IMPRESSIONS: 1. Diverticulum in the sigmoid colon 2. A pedunculated polyp was found in the ascending colon; polypectomy was performed using snare cautery 3. Small internal hemorrhoids 4. Retroflexed views revealed no abnormalities RECOMMENDATIONS: 1. Await biopsy results. Biopsy results will not be ready for 7-10 days. If you don't hear from us in two weeks, call our office for results. 2. No seeds, nuts and popcorn in diet 3. High fiber diet RECALL: Return 1 year Colonoscopy Jacki Montejo MD eSigned: Jacki Montejo MD 10/12/2017 12:09 PM cc:
[2017-10-12 12:44] VITALS: BP 121/74; PULSE 75; RESP 20; TEMP 98.9; O2SAT 99
[2017-10-12] MEDS ORDERED: LEVEMIR SQ (13:15)
[2017-10-12] MEDS ORDERED: GLUCTES12 (13:15)
[2017-10-12] MEDS ORDERED: GLUCKIT15 (13:15)
[2017-10-12] MEDS ORDERED: LISI-515 PO (13:15)
[2017-10-12] MEDS ORDERED: INSU1MIS15 (13:15)
[2017-10-12] MEDS ORDERED: METF850 PO (13:15)
[2017-10-12] MEDS ORDERED: LANCETS1 MI1 (13:15)
[2017-10-12] MEDS ORDERED: PROT40TA PO (13:16)
--- NOTE | 2017-10-12 13:38 | HHI.PR ---
Subjective Remarks Follow up on patient with uncontrolled DM, abdominal pain, elevated LFTs. Patient seen and examined. Patient is predominantly Nauruan-speaking and therefore Stratus translation line was utilized to communicate with the patient. Patient status post EGD and colonoscopy today. Reviewed findings with patient in regards to both with recommendations to continue on a proton pump inhibitor, high-fiber diet, no seeds and nuts or popcorn, repeat colonoscopy in one year and follow-up with GI in the next 1-2 weeks for biopsy results. Patient states he has had some mild abdominal pain but denies any nausea or vomiting. Denies any chest pain or shortness of breath. Denies any fever or chills. Objective Vitals Vital Signs Date Time Temp Pulse Resp B/P (MAP) Pulse Ox O2 Delivery O2 Flow Rate FiO2 10/12/17 12:44 98.9 75 20 121/74 (90) 99 10/12/17 12:24 98.4 81 18 114/64 (81) 97 10/12/17 08:22 97.7 87 20 121/76 (91) 97 10/12/17 03:59 97.8 74 16 120/72 (88) 97 10/11/17 23:15 98.1 73 16 123/75 (91) 96 10/11/17 20:11 97.7 87 16 134/92 (106) 97 10/11/17 19:30 97 21 10/11/17 16:46 98.9 84 18 133/87 (102) 97 10/11/17 15:05 85 I/O 10/11/17 10/11/17 10/11/17 10/12/17 10/12/17 10/12/17 07:00 15:00 23:00 07:00 15:00 23:00 Intake Total 500 ml Balance 500 ml Other 500 ml # Voids 1 2 Result Diagram: 10/11/17 0624 10/11/1724 Imaging Last Impressions Abdomen Ultrasound 10/10/17 0000 Signed Impressions: CONCLUSION: 1. Fatty liver enlarged to almost 20 cm. No free fluid. No hydronephrosis. No acute findings. No gallstones. Chest X-Ray 10/08/172025 Signed Impressions: CONCLUSION: Negative examination. Abdomen/Pelvis CT 10/08/17 0000 Signed Impressions: CONCLUSION: 1. No acute abnormality seen. 2. Hepatic steatosis. 3. Minimal hiatal hernia. Objective Remarks GENERAL: Well-nourished, well-developed pleasant middle-aged Nauruan-speaking male patient in [place]. Awake and alert. SKIN: Warm and dry. No rash. HEENT: Normocephalic. Atraumatic. Pupils equal and round. EOMI. No sclera icterus. No nasal drainage. Mucous membranes pink and moist. NECK: Supple. Trachea midline. CARDIOVASCULAR: Regular rate and rhythm. No murmur appreciated. RESPIRATORY: Nondistended. Clear to auscultation. Breath sounds equal bilaterally. GASTROINTESTINAL: Abdomen soft, nondistended, mild diffuse tenderness to palpation but moreso over the epigastric area. Normoactive bowel sounds x4. MUSCULOSKELETAL: No obvious deformities. Extremities without clubbing, cyanosis , or edema. NEUROLOGICAL: Awake and alert. No obvious cranial nerve deficits. Motor grossly within normal limits. Moving all extremities spontaneously. Normal speech. PSYCHIATRIC: Appropriate mood and affect; insight and judgment normal. Procedures None A/P Problem List: (1) HTN (hypertension) ICD Code: I10 - Essential (primary) hypertension Status: Acute (2) Chest pain ICD Code: R07.9 - Chest pain, unspecified Status: Acute (3) Diabetes ICD Code: E11.9 - Type 2 diabetes mellitus without complications Status: Acute Assessment and Plan 47-year-old male from [facility] with history of hypertension and diabetes, not on medications 1 month, presents with abdominal pain and hyperglycemia Uncontrolled diabetes with hyperglycemia: BG 485 upon arrival. Patient moved here from [facility] 1 month ago and has been unable to obtain medications. He states he did not require insulin in [facility], was only on oral medications. HgbA1c 10.1 -continue on Levemir 10u BID -discontinue metformin 850 mg po bidpc secondary to transaminitis -continue to monitor Accu-Cheks and cover with SSI -Needs outpatient f/up with PCP -reiterated to patient prior to discharge that he will need close follow-up in the next 5-7 days for adjustment of diabetes management Abdominal Pain, Pancreatitis: unclear etiology. Possibly gastroparesis with uncontrolled diabetes. Possible mild pancreatitis, lipase 482. Repeat lipase 356 CT abdomen reviewed, no acute findings, shows hepatic steatosis and minimal hiatal hernia. Abd US enlarged fatty liver. -Status post EGD and colonoscopy revealing gastritis, duodenal inflammation, internal hemorrhoids and pedunculated polyp status post polypectomy with recommendations for continued PPI use, avoidance of seeds and nuts and popcorn and high-fiber diet as well as repeat colonoscopy in one year. Patient was also advised to follow-up with GI as an outpatient in 1-2 weeks for further evaluation and treatment options and does discuss biopsy results Transaminitis: unclear etiology LFTs trending down CT abdomen showing hepatic steatosis Abd US shows fatty liver enlarged to 20cm Hepatitis panel neg -Hold metformin for now -GI following, appreciate recommendations. -Patient advised on avoidance of all alcohol Hypertension: uncontrolled BP better controlled -continue on lisinopril 20mg daily -IV Vasotec prn Dyslipidemia Tg 172, Chol 248, LDL 174 -recommended lifestyle modifications to include regular exercise program, dietary changes -patients 10yr risk of cardiovascular event is 10.2%, high dose statin recommended but unable to initiate statin therapy at this time 2/2 elevated LFTs -patient will need to follow up with PCP as outpatient to manage his dyslipidemia and possibly start statin medication if LFTs return to normal DVT Prophylaxis: patient is ambulatory Discharge Planning Possible discharge later today pending GI clearance and if able to tolerate diet. Problem Qualifiers (1) Diabetes: Qualified Codes: E11.65 - Type 2 diabetes mellitus with hyperglycemia; Z79.4 - intermediate (current) use of insulin Khushboo Preston Oct 12, 2017 13:38
--- NOTE | 2017-10-12 13:40 | HHI.DS ---
Discharge Summary Admission Date Oct 09, 2017 at 02:04 Discharge Date: Oct 12, 2017 Admitting Diagnosis chest pain; diabetes (1) HTN (hypertension) ICD Code: I10 - Essential (primary) hypertension Status: Acute (2) Diabetes ICD Code: E11.9 - Type 2 diabetes mellitus without complications Status: Acute (3) Abdominal pain ICD Code: R10.9 - Unspecified abdominal pain (4) Acute gastritis ICD Code: K29.00 - Acute gastritis without bleeding (5) Transaminitis ICD Code: R74.0 - Nonspecific elevation of levels of transaminase and lactic acid dehydrogenase [LDH] (6) Polyp of colon ICD Code: K63.5 - Polyp of colon (7) Hepatic steatosis ICD Code: K76.0 - Fatty (change of) liver, not elsewhere classified (8) Dyslipidemia ICD Code: E78.5 - Hyperlipidemia, unspecified Procedures None Brief History - From Admission Mr. Ariza is a 47 year old male. She has a past history of hypertension and diabetes. He recently moved here from [facility] about 1 month ago. Since this time he has been unable to acquire medications. He says [facility] he was on oral treatments for his diabetes and blood pressure. She also complains of mid abdominal pain. Imaging shows no acute abnormalities of this area. He does have a mild rhabdomyolysis. Etiology for his abdominal pain and rhabdomyolysis could be related to inflammation related to hyperglycemia for a long period of time. No other complaints are present today. He has not had any fevers. We discussed chest pain, he does not feel his chest is specifically involving the pain. Cardiac enzymes are negative 3. CBC/BMP: 10/11/17 0624 10/11/17 0624 Significant Findings Laboratory Tests Test 10/10/17 09:15 10/10/17 11:52 10/10/17 17:55 10/11/17 06:24 Random Glucose 256 MG/DL (74-106) 254 MG/DL (74-106) Alkaline Phosphatase 123 U/L (45-117) 119 U/L (45-117) Aspartate Amino Transf (AST/SGOT) 112 U/L (15-37) 80 U/L (15-37) Alanine Aminotransferase (ALT/SGPT) 131 U/L (12-78) 126 U/L (12-78) Total Bilirubin 1.2 MG/DL (0.2-1.0) Estimat Glomerular Filtration Rate 86 ML/MIN (>89) 76 ML/MIN (>89) Hemoglobin A1c 10.1 % (4.3-6.0) Iron Level 34 MCG/DL (65-175) Percent Iron Saturation 11.2 % (20-50) Ferritin 500 NG/ML (26-388) Triglycerides Level 172 MG/DL (42-150) Cholesterol Level 248 MG/DL (120-200) LDL Cholesterol 174 MG/DL (0-99) Platelet Count 137 TH/MM3 (150-450) Monocytes (%) (Auto) 15.3 % (0.0-8.0) Monocytes # (Auto) 1.4 TH/MM3 (0-0.9) Albumin 3.3 GM/DL (3.4-5.0) Imaging Last Impressions Abdomen Ultrasound 10/10/17 Signed Impressions: CONCLUSION: 1. Fatty liver enlarged to almost 20 cm. No free fluid. No hydronephrosis. No acute findings. No gallstones. Chest X-Ray 10/08/172025 Signed Impressions: CONCLUSION: Negative examination. Abdomen/Pelvis CT 10/08/17 Signed Impressions: CONCLUSION: 1. No acute abnormality seen. 2. Hepatic steatosis. 3. Minimal hiatal hernia. PE at Discharge GENERAL: Well-nourished, well-developed pleasant middle-aged [place]ibian-speaking male patient in [facility]. Awake and alert. SKIN: Warm and dry. No rash. HEENT: Normocephalic. Atraumatic. Pupils equal and round. EOMI. No sclera icterus. No nasal drainage. Mucous membranes pink and moist. NECK: Supple. Trachea midline. CARDIOVASCULAR: Regular rate and rhythm. No murmur appreciated. RESPIRATORY: Nondistended. Clear to auscultation. Breath sounds equal bilaterally. GASTROINTESTINAL: Abdomen soft, nondistended, mild diffuse tenderness to palpation but moreso over the epigastric area. Normoactive bowel sounds x4. MUSCULOSKELETAL: No obvious deformities. Extremities without clubbing, cyanosis , or edema. NEUROLOGICAL: Awake and alert. No obvious cranial nerve deficits. Motor grossly within normal limits. Moving all extremities spontaneously. Normal speech. PSYCHIATRIC: Appropriate mood and affect; insight and judgment normal. Pt update on day of discharge Follow up on patient with uncontrolled DM, abdominal pain, elevated LFTs. Patient seen and examined. Patient is predominantly Namibian-speaking and therefore Stratus translation line was utilized to communicate with the patient. Patient status post EGD and colonoscopy today. Reviewed findings with patient in regards to both with recommendations to continue on a proton pump inhibitor, high-fiber diet, no seeds and nuts or popcorn, repeat colonoscopy in one year and follow-up with GI in the next 1-2 weeks for biopsy results. Patient states he has had some mild abdominal pain but denies any nausea or vomiting. Denies any chest pain or shortness of breath. Denies any fever or chills. Hospital Course Patient was admitted with abdominal pain, uncontrolled hypertension with blood pressure 186/99 and uncontrolled diabetes with blood sugar 468. CT showed no acute abnormalities. Patient was started on lisinopril with improvement in blood pressure. He was started on Accu-Cheks and insulin sliding scale and was started on metformin. Patient was seen in consultation by gastroenterology who ordered a hepatitis panel which was nonreactive and ultrasound of the liver which revealed a fatty liver enlarged almost 20 cm. Patient's liver function tests trended upwards initially before beginning to improve. Patients metformin was discontinued. He underwent a lipid panel which revealed dyslipidemia with triglycerides 172, total cholesterol 248 and LDL of 174. Discussed with patient lifestyle modification and regular exercise program. Discussed with patient inability to begin statin therapy at this time secondary to elevated liver function test. Patient's blood sugars continue to be poorly controlled. Hemoglobin A1c was 10.1. Patient was started on Levemir 10 units daily which was increased to twice daily dosing. Patient underwent a EGD and colonoscopy revealing gastritis, duodenal inflammation, internal hemorrhoids and pedunculated polyp status post polypectomy with recommendations for continued PPI use, avoidance of seeds and nuts and popcorn and high-fiber diet as well as repeat colonoscopy in one year. He was also advised on avoidance of alcohol. Patient was also advised to follow-up with GI as an outpatient in 1-2 weeks for further evaluation and treatment options and does discuss biopsy results. Patient's abdominal pain improved and he was able to tolerate a diet. He was cleared for discharge from GI standpoint. Patient was instructed to keep close follow-up with primary care physician following discharge for ongoing blood pressure and blood sugar management. Patient was discharged home in stable condition. Pt Condition on Discharge: Stable Discharge Disposition: Discharge Home Discharge Time: > 30 minutes Discharge Instructions DIET: Follow Instructions for: Heart Healthy Diet, Diabetic Diet, High Fiber Diet Additional Diet Instructions: No nuts, seeds or popcorn Avoid alcohol Activities you can perform: Regular-No Restrictions Follow up Referrals: Gastroenterology - 1 Week with Jacki Montejo MD PCP Follow-up - 1 Week with Mikayla Graham New Medications: Blood Glucose Monitoring W/Device (Glucocom Blood Glucose Mo W/Device) 1 Kit Kit KIT .XX DIRECTED for Blood Sugar Management, #1 Glucocom Test Strips (Glucocom Test Strips) 1 Veda Veda EA .XX DIRECTED for Blood Sugar Management, #1 Insulin Syringe/U-100/31G X 5/16" 1 ml (Insulin Syringe/U-100/31G X 5/16" 1 ml) 31 Gauge X 5/16" Mis EA .XX DIRECTED for Blood Sugar Management, #1 0 Refills Lancets (Lancets) 1 Mis Mis EA .XX DIRECTED for Blood Sugar Management, #1 0 Refills Pantoprazole (Protonix) 40 Mg Tab 40 MG PO DAILY for Reflux, #30 TAB 0 Refills Insulin Detemir Inj (Levemir Inj) 1,000 unit/ 10 ML Vial 10 UNITS SQ BID for Blood Sugar Management, #1 VIAL Do not mix with any other Insulin. Lisinopril (Lisinopril) 20 Mg Tab 20 MG PO DAILY for Blood Pressure Management, #30 TAB Discontinued Medications: Lisinopril (Lisinopril) 10 Mg Tab 10 MG PO DAILY, #30 TAB 0 Refills Metformin (Metformin) 500 Mg Tab 500 MG PO BIDPC for Blood Sugar Management, #60 TAB 0 Refills Khushboo Preston Oct 12, 2017 13:40
[2017-10-12 13:57] LABS: SMOOTH MUSCLE TOTAL AUTOABS Negative (Negative)
[2017-10-13 15:53] LABS: MITOCHONDRIAL ABS LESS THAN 20.0 U (<=20.0)
[2017-10-15 11:53] LABS: CERULOPLASMIN 25 mg/dL (18-36)
== END 2017-10-12 17:49 | disposition home or self-care (01) ==
LOC: NEPC 19:22 → NEDA 10-09 02:04 → NEPFCDU 10-09 02:41
PROVIDERS: ADMIT Family Medicine; ATTEND Family Medicine
DX: I10 Essential (primary) hypertension (principal); K29.00 Acute gastritis without bleeding; K64.8 Other hemorrhoids; R74.0 Nonspecific elevation of levels of transaminase and lactic acid dehydrogenase [LDH]; K63.5 Polyp of colon; K85.90 Acute pancreatitis without necrosis or infection, unspecified; K76.0 Fatty (change of) liver, not elsewhere classified; E78.5 Hyperlipidemia, unspecified; E11.65 Type 2 diabetes mellitus with hyperglycemia; K21.9 Gastro-esophageal reflux disease without esophagitis; M62.82 Rhabdomyolysis; Z79.4 Long term (current) use of insulin; Z79.82 Long term (current) use of aspirin; Z79.899 Other long term (current) drug therapy
CPT/HCPCS: 00813; 43239; 45385; 71045; 74177; 76700; 80048; 80053; 80061; 80074; 81001; 82010; 82103; 82390; 82550; 82552; 82728; 82948; 83036; 83520; 83540; 83550; 83690; 83735; 84484; 85025; 86038; 86255; 88305; 88312; 93005; 96361; 96372; 96374; 99285; G0378; J1815; J2370; J7030; J7120; Q9967

== ENCOUNTER 2017-11-20 08:44 | Observation (INO) ==
[2017-11-20] MEDS ORDERED: Morphine Sulfate Inj 2 MG/ML Vial IV.PUSH ONE (09:13)
[2017-11-20] MEDS ORDERED: Sod Chloride 0.9% Inj 1,000 ML IV.SIG ONE ×2 (09:13→13:23)
[2017-11-20] MEDS ORDERED: Morphine Inj 4 MG/ML Vial IV.PUSH ONE (09:30)
[2017-11-20 09:41] LABS: Baso # (Auto) 0.1 th/mm3 (0.0-0.2); Baso % (Auto) 0.6 % (0.0-2.0); Eos % (Auto) 0.2 % (0.0-4.0); Hematocrit 45.3 % (39.0-51.0); Hemoglobin 15.2 gm/dL (13.0-17.0); Lymph # (Auto) 1.1 th/mm3 (1.0-4.8); Lymph % (Auto) 9.3 % (9.0-44.0); Mean Corpuscular HGB Conc 33.6 % (32.0-36.0); Mean Corpuscular Hemoglobin 31.2 pg (27.0-34.0); Mean Corpuscular Volume 93.1 fL (80.0-100.0); Mono # (Auto) 0.8 th/mm3 (0.0-0.9); Mono % (Auto) 7.3 % (0.0-8.0); Neut # (Auto) 9.5 th/mm3 (1.8-7.7); Neut % (Auto) 82.6 % (16.0-70.0); Platelet Count 249 th/mm3 (150-450); Red Blood Count 4.87 mil/mm3 (4.50-5.90); Red Cell Distribution Width 13.7 % (11.6-17.2); White Blood Count 11.5 th/mm3 (4.0-11.0)
[2017-11-20 09:59] LABS: Alanine Aminotransferase 45 U/L (12-78)
[2017-11-20 10:02] LABS: Alkaline Phosphatase 107 U/L (45-117); Total Protein 8.9 g/dL (6.4-8.2)
[2017-11-20 10:28] LABS: Albumin 3.9 g/dL (3.4-5.0); Anion Gap 17 meq/L (5-15); Aspartate Aminotransferase 44 U/L (15-37); Blood Urea Nitrogen 8 mg/dL (7-18); Calcium 8.9 mg/dL (8.5-10.1); Carbon Dioxide 19.2 meq/L (21.0-32.0); Chloride 100 meq/L (98-107); Glomerular Filtration Rate 80 mL/min (>89); Glucose,Random 195 mg/dL (74-106); Lipase 207 U/L (73-393); Potassium 3.7 meq/L (3.5-5.1); Sodium 136 meq/L (136-145)
--- NOTE | 2017-11-20 11:25 | ED ---
HPI General Chief complaint: Nausea/Vomiting/Diarrhea Stated complaint: vomiting/diarrhea x 3 days Time Seen by Provider: 11/20/17 09:06 Source: patient and family Mode of arrival: ambulatory History of Present Illness HPI narrative: 47yM presenting with nausea, vomiting, and diarrhea. The patient was seen in the ED last night (duplicate chart-- ) for similar symptoms, was diagnosed with gastritis, and sent home. He reports 2 days of epigastric/ periumbilical abdominal pain which he describes as "cramping", non- radiating, constant, not made better or worse by anything, moderate to severe intensity, associated with multiple episodes of nausea, vomiting, and watery diarrhea. Denies fever but admits to chills. Family history non-contributory. History of H pylori infection. Related Data Home Medications Medication Instructions Recorded Confirmed amoxicillin 500 mg PO BID 11/20/17 11/20/17 clarithromycin 500 mg PO BID 11/20/17 11/20/17 lisinopril 10 mg PO DAILY 11/20/17 11/20/17 metformin 500 mg PO BID 11/20/17 11/20/17 omeprazole 40 mg PO BID 11/20/17 11/20/17 Allergies Allergy/AdvReac Type Severity Reaction Status Date / Time No Known Allergies Allergy Verified 11/20/17 09:36 Review of Systems Constitutional Reports chills and Denies fever(s) Eyes Denies change in vision ENT Denies headache(s) and Denies nasal congestion Cardiovascular Denies chest pain Respiratory Denies dyspnea Gastrointestinal Reports abdominal pain, Reports nausea and Reports vomiting Genitourinary Denies difficulty urinating Musculoskeletal Denies myalgias Integumentary/Breasts Denies rash Neurologic Denies headache(s) Psychiatric Denies depression Endocrine Denies polyuria Hematologic/Lymphatic Denies easy bruising [facility] Medical History Medical History Diabetes mellitus (Acute) Hypertension (Acute) Surgical History Surgical History Previous back surgery (Acute) Social History Social History Substance History: No History of Abuse Smoking Status: Never smoker How Often Do You Have a Drink Containing Alcohol: 2 to 4 times a month Hx Recent Travel: No Recent Travel in [facility] within the Last 8 Weeks: No Recent Out of Country Travel within the Last 8 Weeks: No Immunization History Tetanus Immunization: >5 Years Exam Const General: healthy appearing and no acute distress [facility] Head: normocephalic and atraumatic Eyes Pupils: PERRL Chest Chest: normal inspection of the chest Resp Auscultation: clear to auscultation bilaterally Cardio Rate: regular rate Rhythm: regular rhythm GI Other: Soft, non-distended, mildly tender in periumbilical area, no McBurney's point tenderness, no guarding or rebound Skin General: no rashes or lesions noted Neuro General: alert, awake and oriented x3 Extrem General: normal to inspection Psych Affect: normal affect Course Initial Documented Vital Signs Temperature 98.3 F 11/20/17 08:50 Pulse Rate 114 H 11/20/17 08:50 Respiratory Rate 20 11/20/17 08:50 Blood Pressure 173/101 H 11/20/17 08:50 Pulse Oximetry 99 11/20/17 08:50 Last Documented Vital Signs Temperature 97.7 F 11/20/17 08:54 Pulse Rate 82 11/20/17 13:42 Respiratory Rate 20 11/20/17 13:42 Blood Pressure 115/59 L 11/20/17 13:42 Pulse Oximetry 98 11/20/17 13:42 Medical Decision Making [facility] Narrative Medical decision making narrative: Assessment: 47yM presenting with N/V/D Plan: Pain control, antiemetics, IV fluids Labs, including lipase and lytes CT abd/ pelvis Reassess Addendum: Patient unable to tolerate PO intake, given Gatorade but vomited shortly thereafter. Labs remarkable for hyperglycemia with mildly elevated anion gap (17) and mild leukocytosis. CT scan negative for acute pathology. This patient cannot go home as he has intractable vomiting and dehydration; he will need IV fluids, IV medications, and re-evaluation at frequent intervals. I explained these results and plan to the patient, who understands and agrees. Case discussed with hospitalist. Differential Diagnosis Differential Diagnosis: Differential diagnosis includes, but is not limited to: appendicitis, colitis, diverticulitis, gastritis, pancreatitis Lab Data Lab results reviewed: Yes I reviewed the patient's lab results. Result diagrams: 11/20/17 09:16 11/20/17 09:16 Lab Results 11/20/17 11/20/17 11/20/17 Range/Units 09:16 09:16 09:27 WBC 11.5 H (4.0-11.0) th/mm3 RBC 4.87 (4.50-5.90) mil/mm3 Hgb 15.2 (13.0-17.0) gm/dL Hct 45.3 (39.0-51.0) % MCV 93.1 (80.0-100.0) fL MCH 31.2 (27.0-34.0) pg MCHC 33.6 (32.0-36.0) % RDW 13.7 (11.6-17.2) % Plt Count 249 (150-450) th/mm3 MPV 8.0 (7.0-11.0) fL Neut % (Auto) 82.6 H (16.0-70.0) % Lymph % (Auto) 9.3 (9.0-44.0) % [place] % (Auto) 7.3 (0.0-8.0) % Eos % (Auto) 0.2 (0.0-4.0) % Baso % (Auto) 0.6 (0.0-2.0) % Neut # (Auto) 9.5 H (1.8-7.7) th/mm3 Lymph # (Auto) 1.1 (1.0-4.8) th/mm3 [place] # (Auto) 0.8 (0.0-0.9) th/mm3 Eos # (Auto) 0.0 (0.0-0.4) th/mm3 Baso # (Auto) 0.1 (0.0-0.2) th/mm3 WBC Differential . Differential Comment Auto diff final Sodium 136 (136-145) meq/L Potassium 3.7 (3.5-5.1) meq/L Chloride 100 (98-107) meq/L Carbon Dioxide 19.2 L (21.0-32.0) meq/L Anion Gap 17 H (5-15) meq/L BUN 8 (7-18) mg/dL Creatinine 1.01 (0.60-1.30) mg/dL Estimated GFR 80 L (>89) mL/min POC Glucose 203 H (68-110) mg/dl Random Glucose 195 H (74-106) mg/dL Calcium 8.9 (8.5-10.1) mg/dL Total Bilirubin 0.8 (0.2-1.0) mg/dL AST 44 H (15-37) U/L ALT 45 (12-78) U/L Alkaline Phosphatase 107 (45-117) U/L Total Protein 8.9 H (6.4-8.2) g/dL Albumin 3.9 (3.4-5.0) g/dL Lipase 207 (73-393) U/L Imaging Data Radiologist's impression: Abdomen/Pelvis CT 11/20/17 09:14 CONCLUSION: No evidence of acute abdominal or pelvic process. No masses are identified. Hypodense liver compatible with fatty infiltration or hepatocellular disease. Discharge Plan Discharge Disposition Patient Disposition: 30 Still Patient Discharge Condition Condition: Stable Discharge Details Diagnosis: Acute dehydration, Intractable vomiting, Increased anion gap metabolic acidosis Physicians Team ED Provider: Mare Tesfaye Primary Care Provider: Primary Care Grayi,Lorena Attending Provider: Phu White Discharge Interventions Interventions: Vital Signs Last Done: 11/20/17 13:42 Status ED Status: Admitted Observation Patient
--- NOTE | 2017-11-20 13:13 | CT ---
EXAM DATE: 11/20/2017 1:06 PM EDT AGE/SEX: 47 years / Male INDICATIONS: Vomiting and diarrhea 3 days CLINICAL DATA: This is the patient's initial encounter. Patient reports that signs and symptoms have been present for 3 days and indicates a pain score of 6/10. MEDICAL/SURGICAL HISTORY: Diabetes. Hypertension. . Back surgery ORAL CONTRAST: No oral contrast ingested. RADIATION DOSE: 10.09 CTDI (mGy) COMPARISON: No prior exams available for comparison. TECHNIQUE: Multiple contiguous axial images were obtained through the abdomen and pelvis following b olus infusion of 98ML ml Omnipaque 350 (iohexol) nonionic water-soluble contrast as a single exam d ose. No oral contrast ingested. Using automated exposure control and adjustment of the mA and/or kV according to patient size, radiation dose was kept as low as reasonably achievable to obtain optimal diagnostic quality images. DICOM format image data is available electronically for review and compar lin. FINDINGS: Examination of the lung bases demonstrates no abnormality. No pleural fluid is identified. No pulmona ry nodules are present. There is decreased density of the liver with respect to the spleen compatible with fatty infiltration. The spleen is unremarkable. The gallbladder and pancreas are unremarkable. No intrahepatic or extrahepatic ductal dilatation is seen. The adrenal glands and kidneys appear nor mal bilaterally. No hydronephrosis or mass lesions are identified. The appendix is identified and ap pears normal. Examination of the pelvis demonstrates no evidence of free fluid or pelvic mass. No abnormally enlarg ed inguinal or retroperitoneal lymph nodes are present. The bladder is unremarkable. There is diverti culosis without evidence of diverticulitis. CONCLUSION: No evidence of acute abdominal or pelvic process. No masses are identified. Hypodense liver compatible with fatty infiltration or hepatocellular disease. Electronically signed by: Armand Osei MD 11/20/2017 1:11 PM EDT
[2017-11-20] MEDS ORDERED: Famotidine PF Inj 20 MG/2 ML Vial IV.PUSH ONE (14:33)
--- NOTE | 2017-11-20 15:15 | P.HPIM ---
History of Present Illness Service: [facility] Primary Care Physician: No Primary Care Physician Chief Complaint: NAUSEA AND VOMITING AND DIARRHEA History of Present Illness: Patient is a 47-year-old gentleman. With a history of diabetes and hypertension who presents to the emergency department with uncontrolled nausea and vomiting and diarrhea. Patient has been seen in the emergency department last night for similar symptoms was diagnosed with gastritis and was sent home. He reported at least 2 days of epigastric abdominal pain described as "cramping" had nonradiating constant and made better by nothing. Not made worse by anything except may be the medications but patient never filled the medications and came right back to the hospital still having nausea and vomiting and diarrhea but again did not take any of the medications at discharge patient decided to go to [facility] and have greasy food and soon afterwards through that right up therefore he came back to the hospital Patient will be admitted under observation for fluids rehydration and diabetic education since he does not understand diabetes at all. Recently appears to been treated for H pylori with amoxicillin and clarithromycin and omeprazole - Diagnosis (1) Diabetes (2) Hypertension (3) Nausea & vomiting (4) Diarrhea (5) Noncompliance Inpatient Certification: I certify that the inpatient services were ordered in accordance with Medicare regulations governing the order. This includes certification that hospital inpatient services are reasonable and necessary and in the case of services not specified as inpatient-only under 42 CFR 419.22(n), that they are appropriately provided as inpatient services in accordance to with the 2-midnight benchmark under 43 CFR 412.3(e) Plans for Post Hospital Care: Home Review of Systems All other systems reviewed negative except as stated in HPI Constitutional: Reports anorexia, Reports malaise Eyes: Denies blind spots, Denies discharge, Denies pain Ears, Nose, Mouth, and Throat: Denies abnormal hearing, Denies dental pain, Denies ear pain Cardiovascular: Denies chest pain, Denies fainting, Denies irregular heart rhythm Respiratory: Denies change in phlegm color, Denies excessive phlegm production, Denies shortness of breath, Denies wheezing Gastrointestinal: Reports abdominal pain, Reports change in bowel habits, Reports change in stools, Reports nausea, Reports vomiting Musculoskeletal: Denies abnormal walking, Denies deformity, Denies loss of height, Denies radiating pain into limb Skin/Breast: Denies non-healing lesions, Denies skin ulcer, Denies yellowing of the skin Neurologic: Denies abnormal hearing, Denies abnormal walking, Denies dizziness, Denies localized weakness, Denies other visual disturbances Psychiatric: Denies abnormal sleep pattern, Denies change in sex drive, Denies hearing things others do not hear Endocrine: Denies cold intolerance, Denies increased hunger, Denies rapid, pounding, or irregular heartbeat Hematologic/Lymphatic: Denies easy bleeding, Denies easy bruising, Denies enlarged lymph nodes Allergic/Immunologic: Denies GI upset with certain foods, Denies hives, Denies seasonal runny nose, Denies throat swelling, Denies tongue swelling PMFSH - History History Provided By: Patient, Family Member - Medical History Medical History: Medical History (Last Reviewed 11/20/17 @ 11:29 by Mare Tesfaye DO) Diabetes mellitus Hypertension - Surgical History Surgical History: Surgical History (Last Reviewed 11/20/17 @ 11:29 by Mare Tesfaye DO) Previous back surgery - Tobacco History Smoking Status: Never smoker - Alcohol History How Often Do You Have a Drink Containing Alcohol: 2 to 4 times a month - Substance Use History Substance History: No History of Abuse - Travel History History of Recent Travel: No Recent Travel in the [place] Within the Last 8 Weeks: No Recent Travel Out of the Country Within the Last 8 Weeks: No - Immunization History Tetanus Immunization: >5 Years Medications and Allergies Active Medications: Active Medications Sodium Chloride (Ns Flush) 2 ml IV.FLUSH PRN PRN PRN Reason: FLUSH AFTER USING IV ACCESS Last Admin: 11/20/17 09:26 Dose: 2 ml Allergies Allergy/AdvReac Type Severity Reaction Status Date / Time No Known Allergies Allergy Verified 11/20/17 09:36 Home Medications Medication Instructions Recorded Confirmed Type amoxicillin 500 mg PO BID 11/20/17 11/20/17 History clarithromycin 500 mg PO BID 11/20/17 11/20/17 History lisinopril 10 mg PO DAILY 11/20/17 11/20/17 History metformin 500 mg PO BID 11/20/17 11/20/17 History omeprazole 40 mg PO BID 11/20/17 11/20/17 History Exam Vital signs: Vital Signs 11/20/17 08:50 11/20/17 08:54 11/20/17 10:00 Temperature 98.3 F 97.7 F Pulse Rate 114 H 105 H 92 H Respiratory Rate 20 16 16 Blood Pressure 173/101 H 147/83 H 141/78 H Pulse Oximetry 99 96 97 11/20/17 13:42 Temperature Pulse Rate 82 Respiratory Rate 20 Blood Pressure 115/59 L Pulse Oximetry 98 Intake & Output 11/19/17 11/20/17 11/20/17 18:59 06:59 18:59 Intake Total 1000 / 1000 Balance 1000 / 1000 Weight 95.254 kg Intake: IV 1000 / 1000 NS Inj 1,000 ML @ Wide Open IV. 1000 / 1000 SIG BOLUS ONE Rx#:[id number] Narrative: GENERAL: Awake alert and oriented 3 talkative cooperative mainly speaks [place] SKIN: Warm and dry. HEAD: Atraumatic. Normocephalic. EYES: Pupils equal and round. No scleral icterus. No injection or drainage. Extraocular muscles intact ENT: No nasal bleeding or discharge. Mucous membranes pink and moist. Tongue is midline NECK: Trachea midline. No JVD. Supple CARDIOVASCULAR: Regular rate and rhythm. S1-S2 no S3 or S4 RESPIRATORY: No accessory muscle use. Clear to auscultation. Breath sounds equal bilaterally. GASTROINTESTINAL: Abdomen soft, non-tender, nondistended. Hepatic and splenic margins not palpable. Mild epigastric abdominal pain MUSCULOSKELETAL: Extremities without clubbing, cyanosis, or edema. No obvious deformities. NEUROLOGICAL: Awake and alert. No obvious cranial nerve deficits. Motor grossly within normal limits. Five out of 5 muscle strength in the arms and legs. Normal speech. PSYCHIATRIC: Appropriate mood and affect; insight and judgment ABnormal. Results - Labs CBC & Chem 7: 11/20/17 09:16 11/20/17 09:16 Labs: Short CBC 11/20/17 Range/Units 09:16 WBC 11.5 H (4.0-11.0) th/mm3 Hgb 15.2 (13.0-17.0) gm/dL Hct 45.3 (39.0-51.0) % Plt Count 249 (150-450) th/mm3 BMP 11/20/17 09:16 Sodium 136 Potassium 3.7 Chloride 100 Carbon Dioxide 19.2 L BUN 8 Creatinine 1.01 Calcium 8.9 Liver Function 11/20/17 Range/Units 09:16 Total Bilirubin 0.8 (0.2-1.0) mg/dL AST 44 H (15-37) U/L ALT 45 (12-78) U/L Alkaline Phosphatase 107 (45-117) U/L Albumin 3.9 (3.4-5.0) g/dL - Imaging Impressions Abdomen/Pelvis CT 11/20/17 09:14 CONCLUSION: No evidence of acute abdominal or pelvic process. No masses are identified. Hypodense liver compatible with fatty infiltration or hepatocellular disease. Caprini VTE Risk Assessment Caprini VTE Risk Assessment: Moderate/High Risk (score >= 2) Caprini Risk Assessment Model: Point Value = 1 Point Value = 2 Point Value = 3 Point Value = 5 Age 41-60 Minor surgery BMI > 25 kg/m2 Swollen legs Varicose veins or History of unexplained or recurrent spontaneous Oral contraceptives or hormone replacement Sepsis (< 1 month) Serious lung disease, including pneumonia (< 1 month) Abnormal pulmonary function Acute myocardial infarction Congestive heart failure (< 1 month) History of inflammatory bowel disease Medical patient at bed rest Age 61-74 Arthroscopic surgery Major open surgery (> 45 min) Laparoscopic surgery (> 45 min) Malignancy Confined to bed (> 72 hours) Immobilizing plaster cast Central venous access Age >= 75 History of VTE Family history of VTE Factor V Leiden Prothrombin [id number] Lupus anticoagulant Anticardiolipin antibodies Elevated serum homocysteine Heparin-induced thrombocytopenia Other congenital or acquired thrombophilia Stroke (< 1 month) Elective arthroplasty Hip, pelvis, or leg fracture Acute spinal cord injury (< 1 month) Prophylaxis Regimen: Total Risk Factor Score Risk Level Prophylaxis Regimen 0-1 Low Early ambulation 2 Moderate Order ONE of the following: *Sequential Compression Device (SCD) *Heparin 5000 units SQ BID 3-4 Higher Order ONE of the following medications: *Heparin 5000 units SQ TID *Enoxaparin/Lovenox 40 mg SQ daily (WT < 150 kg, CrCl > 30 mL/min) *Enoxaparin/Lovenox 30 mg SQ daily (WT < 150 kg, CrCl > 10-29 mL/min) *Enoxaparin/Lovenox 30 mg SQ BID (WT < 150 kg, CrCl > 30 mL/min) AND/OR *Sequential Compression Device (SCD) 5 or more Highest Order ONE of the following medications: *Heparin 5000 units SQ TID (Preferred with Epidurals) *Enoxaparin/Lovenox 40 mg SQ daily (WT < 150 kg, CrCl > 30 mL/min) *Enoxaparin/Lovenox 30 mg SQ daily (WT < 150 kg, CrCl > 10-29 mL/min) *Enoxaparin/Lovenox 30 mg SQ BID (WT < 150 kg, CrCl > 30 mL/min) AND *Sequential Compression Device (SCD) Assessment and Plan - Assessment (1) Diabetes Code(s): E11.9 - Type 2 diabetes mellitus without complications Status: Chronic (2) Hypertension Code(s): I10 - Essential (primary) hypertension Status: Chronic (3) Nausea & vomiting Code(s): R11.2 - Nausea with vomiting, unspecified Status: Acute (4) Diarrhea Code(s): R19.7 - Diarrhea, unspecified Status: Acute (5) Noncompliance Code(s): Z91.19 - Patient's noncompliance with other medical treatment and regimen Status: Chronic - Plan Abdominal pain with nausea and vomiting and diarrhea and cramping-we will hold current medications. We will try clear liquids as tolerated. Some pain control antiemetics and IV fluids Diabetes continue on sliding scale coverage with Accu-Cheks before meals and at bedtime Nausea vomiting suspect secondary to poor dietary choices and noncompliance with medication Malignant medical noncompliance patient was given prescriptions for medications did not even fill them and came right back to the hospital Discussed with RN and patient and family caseworker in the emergency room for treatment Leukocytosis secondary to nausea and vomiting and noncompliance with medication GERD/H. pylori and noncompliance--patient is not able to tolerate the current medication DVT and GI prophylaxis We will consult GI regarding the persistent nausea vomiting and diarrhea Code Status: Full code Discussed Condition With: RN and patient and emergency room physician and case Discharge Planning: Pending improvement
[2017-11-20] MEDS ORDERED: Bisacodyl 10 MG Supp RECTAL PRN (15:17)
[2017-11-20] MEDS ORDERED: Temazepam 15 MG Capsule PO PRN (15:17)
[2017-11-20] MEDS ORDERED: Dextrose 50% in Water 50 ML Vial IV.PUSH PRN (15:21)
[2017-11-20] MEDS: Enoxaparin Inj 40 MG/0.4 ML Syringe SQ SCH (15:56)
[2017-11-20] MEDS: Pantoprazole Inj 40 MG Vial IV.PUSH SCH (15:58)
[2017-11-20] MEDS: Lisinopril 10 MG Tablet PO SCH (16:06)
[2017-11-20] MEDS: Insulin NovoLIN Regular Correctional Sugar Inj SQ SCH ×2 (19:33→22:51)
[2017-11-20] MEDS: Senna/Docusate Sodium 8.6/50 MG Tablet PO SCH (22:51)
[2017-11-21] MEDS: Insulin NovoLIN Regular Correctional Sugar Inj SQ SCH ×5 (04:39→21:04)
[2017-11-21] MEDS: Pantoprazole Inj 40 MG Vial IV.PUSH SCH (04:39)
[2017-11-21] MEDS: Lisinopril 10 MG Tablet PO SCH (08:19)
[2017-11-21] MEDS: Senna/Docusate Sodium 8.6/50 MG Tablet PO SCH ×2 (08:20→21:05)
[2017-11-21 10:29] LABS: Baso # (Auto) 0.1 th/mm3 (0.0-0.2); Baso % (Auto) 0.7 % (0.0-2.0); Eos # (Auto) 0.1 th/mm3 (0.0-0.4); Eos % (Auto) 1.5 % (0.0-4.0); Hematocrit 45.4 % (39.0-51.0); Hemoglobin 15.7 gm/dL (13.0-17.0); Lymph # (Auto) 1.2 th/mm3 (1.0-4.8); Mean Corpuscular HGB Conc 34.5 % (32.0-36.0); Mean Corpuscular Hemoglobin 32.6 pg (27.0-34.0); Mean Corpuscular Volume 94.3 fL (80.0-100.0); Mean Platelet Volume 8.1 fL (7.0-11.0); Mono # (Auto) 0.6 th/mm3 (0.0-0.9); Neut # (Auto) 5.9 th/mm3 (1.8-7.7); Neut % (Auto) 74.8 % (16.0-70.0); Platelet Count 200 th/mm3 (150-450); Red Blood Count 4.81 mil/mm3 (4.50-5.90); White Blood Count 7.9 th/mm3 (4.0-11.0)
--- NOTE | 2017-11-21 10:35 | P.CONGI ---
History of Present Illness Consult date: 11/21/17 Consult reason: Persistent nausea and vomiting, abdominal pain Chief complaint: dehydration, anion gap metabolic acidosis History of Present Illness: This is a 47 yo M who was recently just seen by our service in October with complaints of nausea, vomiting, chest and abdominal pain. Our service did EGD and colonoscopy --> Small hiatal hernia, mild gastritis in the gastric antrum, duodenal inflammation in the duodenal bulb, diverticulum in the sigmoid colon, pedunculated polyp in the ascending colon, internal hemorrhoids. Pathology ( stomach antrum) severe chronic active gastritis with focal intestinal metaplasia. Positive for numerous H. Pylori organisms (ascending colon polyp) adenomatous polyp. Pt states he was called a few days ago with results of procedures and told to start and antibiotic and PPI, however pt has not had a chance to fruit or nut picker the prescriptions. Pt presented back to the ER yesterday with complaints of nausea, vomiting, and abdominal pain. Pt does reports relief in symptoms after previous discharge and states symptoms began again two days ago. Abdominal pain starts in epigastric area and radiates all the way to lower abdomen, described as aching and constant. Vomiting began two days ago, states has noticed some BRB in his emesis. Also has been having diarrhea for two days , 2-3 episodes a day, denies hematochezia and melena. During last admission pt was found to have uncontrolled blood sugars, was not taking his diabetes medication because states it was confiscated when he traveled here. Does report he has been taking his medication as prescribed now. <Mattie Johnson - Last Filed: 11/21/17 11:06> Review of Systems Gastrointestinal: Reports abdominal pain, Reports loose stools, Reports nausea, Reports vomiting, Reports vomiting blood, Denies black, tarry stools, Denies bright, red blood in stools <Mattie Johnson - Last Filed: 11/21/17 11:06> PMFSH - History History Provided By: Patient - Medical History Medical History: Medical History (Last Reviewed 11/20/17 @ 11:29 by Mare Tesfaye DO) Diabetes (Chronic) Hypertension (Chronic) Noncompliance (Chronic) Diabetes mellitus Hypertension - Surgical History Surgical History: Surgical History (Last Reviewed 11/20/17 @ 11:29 by Mare Tesfaye DO) Previous back surgery - Tobacco History Second Hand Smoke Exposure: No Smoking Status: Never smoker - Alcohol History How Often Do You Have a Drink Containing Alcohol: Monthly or less - Substance Use History Substance History: No History of Abuse - Travel History History of Recent Travel: No Recent Travel in the [place] Within the Last 8 Weeks: No Recent Travel Out of the Country Within the Last 8 Weeks: No - Immunization History Tetanus Immunization: >5 Years <Mattie Johnson - Last Filed: 11/21/17 11:06> - Medical History Medical History: Medical History (Last Reviewed 11/20/17 @ 11:29 by Mare Tesfaye DO) Diabetes (Chronic) Hypertension (Chronic) Noncompliance (Chronic) Diabetes mellitus Hypertension - Surgical History Surgical History: Surgical History (Last Reviewed 11/20/17 @ 11:29 by Mare Tesfaye DO) Previous back surgery <Alex Be - Last Filed: 11/21/17 20:02> Medications and Allergies Active Medications: Active Medications Acetaminophen (Tylenol) 650 mg PO Q4H PRN PRN Reason: Temp > 100.4 Al Hydroxide/Mg Hydroxide (Milk Of Magnesia Liq) 30 ml PO Q12H PRN PRN Reason: Mild Constipation Bisacodyl (Dulcolax Supp) 10 mg RECTAL DAILY PRN PRN Reason: SEVERE CONSITIPATION Dextrose (D50w Vial) 50 ml IV.PUSH UNSCH PRN PRN Reason: PER HYPOGLYCEMIA PROTOCOL Enoxaparin Sodium (Lovenox Inj) 40 mg SQ Q24H IQRA Last Admin: 11/20/17 15:56 Dose: Not Given Glucagon (Glucagon Inj) 1 mg OTHER PRN PRN PRN Reason: for Hypoglycemia Protocol Insulin Human Regular (Novolin R Supplemental Scale) 0 units SQ ACHS AND 3AM IQRA; Protocol Last Admin: 11/21/17 07:38 Dose: Not Given Lactulose (Lactulose Liq) 30 ml PO DAILY PRN PRN Reason: SEVERE CONSITIPATION Lisinopril (Prinivil) 10 mg PO DAILY IQRA Last Admin: 11/21/17 08:19 Dose: 10 mg Ondansetron HCl (Zofran Odt) 4 mg PO Q6H PRN PRN Reason: NAUSEA OR VOMITING Last Admin: 11/20/17 22:55 Dose: 4 mg Pantoprazole Sodium (Protonix Inj) 40 mg IV.PUSH Q12H IQRA Last Admin: 11/21/17 04:39 Dose: 40 mg Senna/Docusate Sodium (Zulam-Colace) 1 tab PO BID [facility] Last Admin: 11/21/17 08:20 Dose: 1 tab Sennosides (Senokot) 17.2 mg PO Q12H PRN PRN Reason: Moderate Constipation Sodium Chloride (Ns Flush) 2 ml IV.FLUSH PRN PRN PRN Reason: FLUSH AFTER USING IV ACCESS Last Admin: 11/20/17 09:26 Dose: 2 ml Temazepam (Restoril) 15 mg PO HS PRN PRN Reason: INSOMNIA <Mattie Johnson - Last Filed: 11/21/17 11:06> Active Medications: Active Medications Acetaminophen (Tylenol) 650 mg PO Q4H PRN PRN Reason: PAIN 1-10 AND/OR FEVER >101F Last Admin: 11/21/17 17:15 Dose: 650 mg Al Hydroxide/Mg Hydroxide (Milk Of Magnesia Liq) 30 ml PO Q12H PRN PRN Reason: Mild Constipation Amoxicillin (Amoxil) 500 mg PO BID [facility] Last Admin: 11/21/17 11:52 Dose: 500 mg Bisacodyl (Dulcolax Supp) 10 mg RECTAL DAILY PRN PRN Reason: SEVERE CONSITIPATION Clarithromycin (Biaxin) 500 mg PO Q12HR [facility] Last Admin: 11/21/17 12:26 Dose: 500 mg Dextrose (D50w Vial) 50 ml IV.PUSH UNSCH PRN PRN Reason: PER HYPOGLYCEMIA PROTOCOL Enoxaparin Sodium (Lovenox Inj) 40 mg SQ Q24H [facility] Last Admin: 11/21/17 17:18 Dose: 40 mg Glucagon (Glucagon Inj) 1 mg OTHER PRN PRN PRN Reason: for Hypoglycemia Protocol Insulin Human Regular (Novolin R Supplemental Scale) 0 units SQ ACHS AND 3AM IQRA; Protocol Last Admin: 11/21/17 17:32 Dose: Not Given Lactulose (Lactulose Liq) 30 ml PO DAILY PRN PRN Reason: SEVERE CONSITIPATION Lisinopril (Prinivil) 10 mg PO DAILY [facility] Last Admin: 11/21/17 08:19 Dose: 10 mg Metoclopramide HCl (Reglan Inj) 10 mg IV.PUSH Q8H [facility]; Protocol Last Admin: 11/21/17 13:35 Dose: 10 mg Ondansetron HCl (Zofran Odt) 4 mg PO Q6H PRN PRN Reason: NAUSEA OR VOMITING Last Admin: 11/20/17 22:55 Dose: 4 mg Pantoprazole Sodium (Protonix) 40 mg PO BID IQRA Senna/Docusate Sodium (Zulma-Colace) 1 tab PO BID IQRA Last Admin: 11/21/17 08:20 Dose: 1 tab Sennosides (Senokot) 17.2 mg PO Q12H PRN PRN Reason: Moderate Constipation Sodium Chloride (Ns Flush) 2 ml IV.FLUSH PRN PRN PRN Reason: FLUSH AFTER USING IV ACCESS Last Admin: 11/21/17 12:30 Dose: 2 ml Temazepam (Restoril) 15 mg PO HS PRN PRN Reason: INSOMNIA <Alex Be E - Last Filed: 11/21/17 20:02> Allergies Allergy/AdvReac Type Severity Reaction Status Date / Time No Known Allergies Allergy Verified 11/20/17 09:36 Home Medications Medication Instructions Recorded Confirmed Type amoxicillin 500 mg PO BID 11/20/17 11/20/17 History clarithromycin 500 mg PO BID 11/20/17 11/20/17 History lisinopril 10 mg PO DAILY 11/20/17 11/20/17 History metformin 500 mg PO BID 11/20/17 11/20/17 History omeprazole 40 mg PO BID 11/20/17 11/20/17 History Exam Vital signs: Vital Signs 11/20/17 13:42 11/20/17 16:00 11/20/17 16:06 Temperature 97.9 F Pulse Rate 82 77 Respiratory Rate 20 15 15 Blood Pressure 115/59 L 132/72 140/72 Pulse Oximetry 98 98 98 11/20/17 21:00 11/21/17 00:00 11/21/17 04:00 Temperature 98.2 F 98.1 F 98.1 F Pulse Rate 81 78 73 Respiratory Rate 18 17 16 Blood Pressure 132/72 128/79 119/74 Pulse Oximetry 98 98 98 11/21/17 07:57 Temperature 97.7 F Pulse Rate 73 Respiratory Rate 16 Blood Pressure 132/89 Pulse Oximetry 97 Intake & Output 11/20/17 11/21/17 11/21/17 18:59 06:59 18:59 Intake Total 1999 480 / 480 Balance 1999 480 / 480 Weight 95.254 kg Intake: IV 1999 NS Inj 1,000 ML @ Wide Open IV. 1999 SIG BOLUS ONE Rx#:[id number] Oral 480 / 480 Other: # Voids 2 Date of Last Bowel Movement 11/18/17 - Constitutional no acute distress - Routine HEENT Exam Head: Present: normocephalic, atraumatic - Routine Respiratory Exam Present: CTA bilaterally. Absent: accessory muscle use - Routine Cardiovascular Exam Present: RRR - Routine Abdominal Exam Present: soft, normoactive bowel sounds, tenderness (generalized abdominal tenderness). Absent: distended, rebound, guarding, firm - Routine Skin Exam Present: dry, warm - Routine Neurological Exam Present: alert, oriented X3 <Mattie Johnson - Last Filed: 11/21/17 11:06> Vital signs: Vital Signs 11/20/17 21:00 11/21/17 00:00 11/21/17 04:00 Temperature 98.2 F 98.1 F 98.1 F Pulse Rate 81 78 73 Respiratory Rate 18 17 16 Blood Pressure 132/72 128/79 119/74 Pulse Oximetry 98 98 98 11/21/17 07:57 11/21/17 11:35 11/21/17 16:01 Temperature 97.7 F 97.6 F 98.0 F Pulse Rate 73 87 81 Respiratory Rate 16 20 16 Blood Pressure 132/89 133/81 120/75 Pulse Oximetry 97 97 97 Intake & Output 11/21/17 11/21/17 11/22/17 06:59 18:59 06:59 Intake Total 480 / 480 Balance 480 / 480 Intake: Oral 480 / 480 Other: # Voids 2 Date of Last Bowel Movement 11/18/17 <Alex Be - Last Filed: 11/21/17 20:02> Results - Labs CBC & Chem 7: 11/21/17 10:00 11/21/17 10:00 Labs: Laboratory Results - last 24 hr 11/20/17 11/20/17 11/21/17 09:16 22:32 04:38 Sodium 136 Potassium 3.7 Chloride 100 Carbon Dioxide 19.2 L Anion Gap 17 H BUN 8 Creatinine 1.01 Estimated GFR 80 L POC Glucose 93 122 H Random Glucose 195 H Calcium 8.9 AST 44 H Albumin 3.9 Lipase 207 11/21/17 07:36 Sodium Potassium Chloride Carbon Dioxide Anion Gap BUN Creatinine Estimated GFR POC Glucose 119 H Random Glucose Calcium AST Albumin Lipase - Imaging Impressions Abdomen/Pelvis CT 11/20/17 09:14 CONCLUSION: No evidence of acute abdominal or pelvic process. No masses are identified. Hypodense liver compatible with fatty infiltration or hepatocellular disease. <Mattie Jhonson - Last Filed: 11/21/17 11:06> - Labs CBC & Chem 7: 11/21/17 10:00 11/21/17 10:00 Labs: Laboratory Results - last 24 hr 11/20/17 11/21/17 11/21/17 22:32 04:38 07:36 WBC RBC Hgb Hct MCV MCH MCHC RDW Plt Count MPV Neut % (Auto) Lymph % (Auto) [place] % (Auto) Eos % (Auto) Baso % (Auto) Neut # (Auto) Lymph # (Auto) [place] # (Auto) Eos # (Auto) Baso # (Auto) WBC Differential Differential Comment Sodium Potassium Chloride Carbon Dioxide Anion Gap BUN Creatinine Estimated GFR POC Glucose 93 122 H 119 H Random Glucose Calcium Total Bilirubin AST ALT Alkaline Phosphatase Total Protein Albumin Lipase 11/21/17 11/21/17 11/21/17 10:00 10:00 12:24 WBC 7.9 RBC 4.81 Hgb 15.7 Hct 45.4 MCV 94.3 MCH 32.6 MCHC 34.5 RDW 14.0 Plt Count 200 MPV 8.1 Neut % (Auto) 74.8 H Lymph % (Auto) 15.0 [place] % (Auto) 8.0 Eos % (Auto) 1.5 Baso % (Auto) 0.7 Neut # (Auto) 5.9 Lymph # (Auto) 1.2 [place] # (Auto) 0.6 Eos # (Auto) 0.1 Baso # (Auto) 0.1 WBC Differential . Differential Comment Auto diff final Sodium 139 Potassium 3.7 Chloride 104 Carbon Dioxide 25.8 Anion Gap 9 BUN 10 Creatinine 1.00 Estimated GFR 81 L POC Glucose 95 Random Glucose 164 H Calcium 8.5 Total Bilirubin 1.3 H AST 41 H ALT 43 Alkaline Phosphatase 104 Total Protein 8.2 D Albumin 3.6 Lipase 302 11/21/17 17:20 WBC RBC Hgb Hct MCV MCH MCHC RDW Plt Count MPV Neut % (Auto) Lymph % (Auto) [place] % (Auto) Eos % (Auto) Baso % (Auto) Neut # (Auto) Lymph # (Auto) [place] # (Auto) Eos # (Auto) Baso # (Auto) WBC Differential Differential Comment Sodium Potassium Chloride Carbon Dioxide Anion Gap BUN Creatinine Estimated GFR POC Glucose 79 Random Glucose Calcium Total Bilirubin AST ALT Alkaline Phosphatase Total Protein Albumin Lipase <HaileAlex - Last Filed: 11/21/17 20:02> Assessment and Plan (1) H. pylori infection Status: Acute Code(s): A04.8 - Other specified bacterial intestinal infections (2) Abdominal pain Status: Acute Code(s): R10.9 - Unspecified abdominal pain (3) Nausea & vomiting Status: Acute Code(s): R11.2 - Nausea with vomiting, unspecified (4) Diarrhea Status: Acute Code(s): R19.7 - Diarrhea, unspecified - Plan Assessment: - Abdominal pain with intractable nausea and vomiting x 2 days- States pain starts in epigastric area and radiates to his lower abdomen, constant, aching. Nausea and vomiting x 2 days, denies hematemesis and coffee ground emesis. Pt seen by our service in October EGD and colonoscopy --> Small hiatal hernia, mild gastritis in the gastric antrum, duodenal inflammation in the duodenal bulb, diverticulum in the sigmoid colon, pedunculated polyp in the ascending colon, internal hemorrhoids. Pathology (stomach antrum ) severe chronic active gastritis with focal intestinal metaplasia. Positive for numerous H. Pylori organisms (ascending colon polyp) adenomatous polyp. Pt states he was called a few days ago with results of procedures and told to start and antibiotic and PPI, however pt has not had a chance to fruit or nut picker the prescriptions. Pt does reports symptoms improved after previous DC and began again 2 days ago - History of elevated LFTs- significant improved during this admission - Diarrhea- Pt reports 2-3 episodes a day for the past two days. Denies hematochezia and melena. - DM- recent seen with uncontrolled blood sugars, was off DM medication because states was confiscated when he travelled here from [place] the [place]. Plan: Start tx for H. Pylori Amoxicillin 500mg - Take 2 tabs BID Clarithromycin- 500 mg BID Protonix 40 mg BID x 10 days Start Reglan ? gastroparesis given DM history Stool studies BGL control Further recommendations based on clinical course Pt has been seen and examined by myself and Dr. Be and this note is written on his behalf <Mattie Johnson - Last Filed: 11/21/17 11:06> (1) H. pylori infection Status: Acute Code(s): A04.8 - Other specified bacterial intestinal infections (2) Abdominal pain Status: Acute Code(s): R10.9 - Unspecified abdominal pain (3) Nausea & vomiting Status: Acute Code(s): R11.2 - Nausea with vomiting, unspecified (4) Diarrhea Status: Acute Code(s): R19.7 - Diarrhea, unspecified - Attending Attestation Patient was seen and examined Agree with above Continue with current supportive care Monitor labs We also start with H pylori treatment Patient will require follow-up with GI post discharge <Alex Be - Last Filed: 11/21/17 20:02>
[2017-11-21 10:59] LABS: Alanine Aminotransferase 43 U/L (12-78); Albumin 3.6 g/dL (3.4-5.0); Anion Gap 9 meq/L (5-15); Aspartate Aminotransferase 41 U/L (15-37); Blood Urea Nitrogen 10 mg/dL (7-18); Calcium 8.5 mg/dL (8.5-10.1); Carbon Dioxide 25.8 meq/L (21.0-32.0); Chloride 104 meq/L (98-107); Glomerular Filtration Rate 81 mL/min (>89); Glucose,Random 164 mg/dL (74-106); Lipase 302 U/L (73-393); Potassium 3.7 meq/L (3.5-5.1); Sodium 139 meq/L (136-145)
[2017-11-21 11:01] LABS: Alkaline Phosphatase 104 U/L (45-117); Total Protein 8.2 g/dL (6.4-8.2)
--- NOTE | 2017-11-21 15:34 | P.PNIM ---
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 Reports that abdominal pain continues, however slightly improved. Still with some nausea and vomiting today , however overall improving. Denies any chest pain or shortness of breath. Physical Exam Vital signs: Vital Signs 11/20/17 16:00 11/20/17 16:06 11/20/17 21:00 Temperature 97.9 F 98.2 F Pulse Rate 77 81 Respiratory Rate 15 15 18 Blood Pressure 132/72 140/72 132/72 Pulse Oximetry 98 98 98 11/21/17 00:00 11/21/17 04:00 11/21/17 07:57 Temperature 98.1 F 98.1 F 97.7 F Pulse Rate 78 73 73 Respiratory Rate 17 16 16 Blood Pressure 128/79 119/74 132/89 Pulse Oximetry 98 98 97 11/21/17 11:35 Temperature 97.6 F Pulse Rate 87 Respiratory Rate 20 Blood Pressure 133/81 Pulse Oximetry 97 Intake & Output 11/20/17 11/21/17 11/21/17 18:59 06:59 18:59 Intake Total 1999 480 / 480 Balance 1999 480 / 480 Weight 95.254 kg Intake: IV 1999 NS Inj 1,000 ML @ Wide Open IV. 1999 SIG BOLUS ONE Rx#:[id number] Oral 480 / 480 Other: # Voids 2 Date of Last Bowel Movement 11/18/17 Narrative: GENERAL: Patient sitting up in bed. Appears comfortable. SKIN: Warm and dry. HEAD: Normocephalic. EYES: No scleral icterus. No injection or drainage. NECK: Supple, trachea midline. No JVD . CARDIOVASCULAR: Regular rate and rhythm without murmurs, gallops, or rubs. RESPIRATORY: Breath sounds equal bilaterally. No accessory muscle use. GASTROINTESTINAL: Abdomen soft, non-tender, nondistended. Positive bowel sounds. MUSCULOSKELETAL: No cyanosis, or edema. BACK: Nontender without obvious deformity. No CVA tenderness. Results - Labs CBC & Chem 7: 11/21/17 10:00 11/21/17 10:00 Laboratory Results - last 24 hr 11/20/17 11/21/17 11/21/17 22:32 04:38 07:36 WBC RBC Hgb Hct MCV MCH MCHC RDW Plt Count MPV Neut % (Auto) Lymph % (Auto) [place] % (Auto) Eos % (Auto) Baso % (Auto) Neut # (Auto) Lymph # (Auto) [place] # (Auto) Eos # (Auto) Baso # (Auto) WBC Differential Differential Comment Sodium Potassium Chloride Carbon Dioxide Anion Gap BUN Creatinine Estimated GFR POC Glucose 93 122 H 119 H Random Glucose Calcium Total Bilirubin AST ALT Alkaline Phosphatase Total Protein Albumin Lipase 11/21/17 11/21/17 11/21/17 10:00 10:00 12:24 WBC 7.9 RBC 4.81 Hgb 15.7 Hct 45.4 MCV 94.3 MCH 32.6 MCHC 34.5 RDW 14.0 Plt Count 200 MPV 8.1 Neut % (Auto) 74.8 H Lymph % (Auto) 15.0 [place] % (Auto) 8.0 Eos % (Auto) 1.5 Baso % (Auto) 0.7 Neut # (Auto) 5.9 Lymph # (Auto) 1.2 [place] # (Auto) 0.6 Eos # (Auto) 0.1 Baso # (Auto) 0.1 WBC Differential . Differential Comment Auto diff final Sodium 139 Potassium 3.7 Chloride 104 Carbon Dioxide 25.8 Anion Gap 9 BUN 10 Creatinine 1.00 Estimated GFR 81 L POC Glucose 95 Random Glucose 164 H Calcium 8.5 Total Bilirubin 1.3 H AST 41 H ALT 43 Alkaline Phosphatase 104 Total Protein 8.2 D Albumin 3.6 Lipase 302 Assessment and Plan - Assessment (1) Diabetes Code(s): E11.9 - Type 2 diabetes mellitus without complications Status: Chronic (2) Hypertension Code(s): I10 - Essential (primary) hypertension Status: Chronic (3) Nausea & vomiting Code(s): R11.2 - Nausea with vomiting, unspecified Status: Acute (4) Diarrhea Code(s): R19.7 - Diarrhea, unspecified Status: Acute (5) Noncompliance Code(s): Z91.19 - Patient's noncompliance with other medical treatment and regimen Status: Chronic - Plan //Abdominal pain with nausea and vomiting and diarrhea and cramping-we will hold current medications. We will try clear liquids as tolerated. Some pain control antiemetics and IV fluids = Continue on antibiotics, Reglan as per GI. Seems to be improving. Hopefully better by tomorrow and can discharge home if okay with GI. //Diabetes continue on sliding scale coverage with Accu-Cheks before meals and at bedtime = Blood sugars controlled. Continue diabetic diet and sliding scale. //medical noncompliance -patient was given prescriptions for medications did not even fill them and came right back to the hospital //Discussed with RN and patient and case packer and sealer in the emergency room for treatment //Leukocytosis secondary to nausea and vomiting and noncompliance with medication = Resolved. //GERD/H. pylori and noncompliance--patient is not able to tolerate the current medication = As per GI. Appreciate assistance. //DVT and GI prophylaxis Discharge Planning: Hopefully discharge home tomorrow morning if nausea vomiting improved.
[2017-11-21] MEDS: Acetaminophen 325 MG Tablet PO PRN ×2 (17:15→21:17)
[2017-11-21] MEDS: Enoxaparin Inj 40 MG/0.4 ML Syringe SQ SCH (17:18)
[2017-11-22] MEDS: Insulin NovoLIN Regular Correctional Sugar Inj SQ SCH ×2 (03:34→08:06)
[2017-11-22 05:14] VITALS: TEMP 98.3; O2SAT 98
[2017-11-22 08:52] VITALS: BP 130/82; PULSE 75; RESP 20
[2017-11-22] MEDS: Senna/Docusate Sodium 8.6/50 MG Tablet PO SCH (09:12)
[2017-11-22] MEDS: Lisinopril 10 MG Tablet PO SCH (09:12)
--- NOTE | 2017-11-22 09:25 | P.PNIM ---
Subjective Interval history: Patient seen using person investigator. Patient says he is feeling well. Denies any chest pain shortness of breath. Denies any abdominal pain. Feels like going home. Physical Exam Vital signs: Vital Signs 11/21/17 11:35 11/21/17 16:01 11/21/17 20:00 Temperature 97.6 F 98.0 F 98.5 F Pulse Rate 87 81 86 Respiratory Rate 20 16 17 Blood Pressure 133/81 120/75 121/68 Pulse Oximetry 97 97 97 11/22/17 00:00 11/22/17 04:00 11/22/17 08:00 Temperature 98.1 F 98.3 F 98.3 F Pulse Rate 69 74 75 Respiratory Rate 17 16 20 Blood Pressure 120/74 118/75 130/82 Pulse Oximetry 99 98 98 Intake & Output 11/21/17 11/22/17 11/22/17 18:59 06:59 18:59 Intake Total 120 / 120 Balance 120 / 120 Intake: Oral 120 / 120 Other: Date of Last Bowel Movement 11/18/17 Narrative: GENERAL: Patient sitting up in bed. Appears comfortable. And oriented 3. SKIN: Warm and dry. HEAD: Normocephalic. EYES: No scleral icterus. No injection or drainage. NECK: Supple, trachea midline. No JVD . CARDIOVASCULAR: Regular rate and rhythm without murmurs, gallops, or rubs. RESPIRATORY: Breath sounds equal bilaterally. No accessory muscle use. GASTROINTESTINAL: Abdomen soft, non-tender, nondistended. Positive bowel sounds. MUSCULOSKELETAL: No cyanosis, or edema. BACK: Nontender without obvious deformity. No CVA tenderness. Results - Labs CBC & Chem 7: 11/21/17 10:00 11/21/17 10:00 Laboratory Results - last 24 hr 11/21/17 11/21/17 11/21/17 10:00 10:00 12:24 WBC 7.9 RBC 4.81 Hgb 15.7 Hct 45.4 MCV 94.3 MCH 32.6 MCHC 34.5 RDW 14.0 Plt Count 200 MPV 8.1 Neut % (Auto) 74.8 H Lymph % (Auto) 15.0 [place] % (Auto) 8.0 Eos % (Auto) 1.5 Baso % (Auto) 0.7 Neut # (Auto) 5.9 Lymph # (Auto) 1.2 [place] # (Auto) 0.6 Eos # (Auto) 0.1 Baso # (Auto) 0.1 WBC Differential . Differential Comment Auto diff final Sodium 139 Potassium 3.7 Chloride 104 Carbon Dioxide 25.8 Anion Gap 9 BUN 10 Creatinine 1.00 Estimated GFR 81 L POC Glucose 95 Random Glucose 164 H Calcium 8.5 Total Bilirubin 1.3 H AST 41 H ALT 43 Alkaline Phosphatase 104 Total Protein 8.2 D Albumin 3.6 Lipase 302 11/21/17 11/21/17 11/22/17 17:20 20:19 03:30 WBC RBC Hgb Hct MCV MCH MCHC RDW Plt Count MPV Neut % (Auto) Lymph % (Auto) [place] % (Auto) Eos % (Auto) Baso % (Auto) Neut # (Auto) Lymph # (Auto) [place] # (Auto) Eos # (Auto) Baso # (Auto) WBC Differential Differential Comment Sodium Potassium Chloride Carbon Dioxide Anion Gap BUN Creatinine Estimated GFR POC Glucose 79 239 H 95 Random Glucose Calcium Total Bilirubin AST ALT Alkaline Phosphatase Total Protein Albumin Lipase Assessment and Plan - Assessment (1) Diabetes Code(s): E11.9 - Type 2 diabetes mellitus without complications Status: Chronic (2) Hypertension Code(s): I10 - Essential (primary) hypertension Status: Chronic (3) Nausea & vomiting Code(s): R11.2 - Nausea with vomiting, unspecified Status: Acute (4) Diarrhea Code(s): R19.7 - Diarrhea, unspecified Status: Acute (5) Noncompliance Code(s): Z91.19 - Patient's noncompliance with other medical treatment and regimen Status: Chronic - Plan //Abdominal pain with nausea and vomiting and diarrhea and cramping-we will hold current medications. We will try clear liquids as tolerated. Some pain control antiemetics and IV fluids = Continue on antibiotics, Reglan as per GI. Seems to be improving. Hopefully better by tomorrow and can discharge home if okay with GI. = Discharge home. Follow with GI as outpatient. //Diabetes continue on sliding scale coverage with Accu-Cheks before meals and at bedtime = Blood sugars controlled. Continue diabetic diet and sliding scale. = We will start on glipizide. Follow with primary care. Patient conveys understanding. //medical noncompliance -patient was given prescriptions for medications did not even fill them and came right back to the hospital //Discussed with RN and patient and case management social worker in the emergency room for treatment //Leukocytosis secondary to nausea and vomiting and noncompliance with medication = Resolved. //GERD/H. pylori and noncompliance--patient is not able to tolerate the current medication = As per GI. Appreciate assistance. //DVT and GI prophylaxis Discharge Planning: Hopefully discharge home tomorrow morning if nausea vomiting improved.
--- NOTE | 2017-11-22 09:37 | P.DS ---
Date of admission: 11/20/17 15:02 Primary care physician: No Primary Care Physician Brief History from admission: Patient is a 47-year-old gentleman. With a history of diabetes and hypertension who presents to the emergency department with uncontrolled nausea and vomiting and diarrhea. Patient has been seen in the emergency department last night for similar symptoms was diagnosed with gastritis and was sent home. He reported at least 2 days of epigastric abdominal pain described as "cramping" had nonradiating constant and made better by nothing. Not made worse by anything except may be the medications but patient never filled the medications and came right back to the hospital still having nausea and vomiting and diarrhea but again did not take any of the medications at discharge patient decided to go to [employer] and have greasy food and soon afterwards through that right up therefore he came back to the hospital Patient will be admitted under observation for fluids rehydration and diabetic education since he does not understand diabetes at all. Recently appears to been treated for H pylori with amoxicillin and clarithromycin and omeprazole DS: Diagnosis - Discharge Diagnosis (1) Diabetes Status: Chronic (2) Hypertension Status: Chronic (3) Nausea & vomiting Status: Acute (4) Diarrhea Status: Acute (5) Noncompliance Status: Chronic DS: Medications - Discharge Medications Prescriptions: amoxicillin 500 mg PO BID 10 Days #20 tab clarithromycin 500 mg PO BID 10 Days #20 tab lisinopril 10 mg PO DAILY #30 tab omeprazole 40 mg PO BID 10 Days #20 cap DS: Summary Hospital Course: Imaging as below with no acute abdominal process. Fatty liver likely an KIKE. GI was consulted, and patient was started on antibiotics for H pylori, as well as Reglan for suspected gastroparesis given history of diabetes. Abdominal pain , nausea improved. Patient discharged home. Will need follow-up with primary care, gastroenterology. Diabetes medications were adjusted. Discontinuation of metformin, with addition of glipizide. For problem based summary from most recent progress note, please see below. //Abdominal pain with nausea and vomiting and diarrhea and cramping-we will hold current medications. We will try clear liquids as tolerated. Some pain control antiemetics and IV fluids = Continue on antibiotics, Reglan as per GI. Seems to be improving. Hopefully better by tomorrow and can discharge home if okay with GI. = Discharge home. Follow with GI as outpatient. //Diabetes continue on sliding scale coverage with Accu-Cheks before meals and at bedtime = Blood sugars controlled. Continue diabetic diet and sliding scale. = We will start on glipizide. Follow with primary care. Patient conveys understanding. 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 //GERD/H. pylori and noncompliance--patient is not able to tolerate the current medication = As per GI. Appreciate assistance. //DVT and GI prophylaxis Discharge Planning: Hopefully discharge home tomorrow morning if nausea vomiting improved. - Time Spent with Patient Total time spent providing and/or coordinating discharge services: Greater than 30 minutes - Quality: VTE Deep Vein Thrombosis/Pulmonary Embolism Present on Admission: No Exam Vital signs: Vital Signs 11/21/17 11:35 11/21/17 16:01 11/21/17 20:00 Temperature 97.6 F 98.0 F 98.5 F Pulse Rate 87 81 86 Respiratory Rate 20 16 17 Blood Pressure 133/81 120/75 121/68 Pulse Oximetry 97 97 97 11/22/17 00:00 11/22/17 04:00 11/22/17 08:00 Temperature 98.1 F 98.3 F 98.3 F Pulse Rate 69 74 75 Respiratory Rate 17 16 20 Blood Pressure 120/74 118/75 130/82 Pulse Oximetry 99 98 98 Intake & Output 11/21/17 11/22/17 11/22/17 18:59 06:59 18:59 Intake Total 120 / 120 Balance 120 / 120 Intake: Oral 120 / 120 Other: Date of Last Bowel Movement 11/18/17 Results Procedures completed during hospitalization: No invasive procedures. Labs on day of discharge: Labs from last 24 hours 11/22/17 11/21/17 11/21/17 03:30 20:19 17:20 WBC RBC Hgb Hct MCV MCH MCHC RDW Plt Count MPV Neut % (Auto) Lymph % (Auto) Storey % (Auto) Eos % (Auto) Baso % (Auto) Neut # (Auto) Lymph # (Auto) Storey # (Auto) Eos # (Auto) Baso # (Auto) WBC Differential Differential Comment Sodium Potassium Chloride Carbon Dioxide Anion Gap BUN Creatinine Estimated GFR POC Glucose 95 239 H 79 Random Glucose Calcium Total Bilirubin AST ALT Alkaline Phosphatase Total Protein Albumin Lipase 11/21/17 11/21/17 11/21/17 12:24 10:00 10:00 WBC 7.9 RBC 4.81 Hgb 15.7 Hct 45.4 MCV 94.3 MCH 32.6 MCHC 34.5 RDW 14.0 Plt Count 200 MPV 8.1 Neut % (Auto) 74.8 H Lymph % (Auto) 15.0 Storey % (Auto) 8.0 Eos % (Auto) 1.5 Baso % (Auto) 0.7 Neut # (Auto) 5.9 Lymph # (Auto) 1.2 Storey # (Auto) 0.6 Eos # (Auto) 0.1 Baso # (Auto) 0.1 WBC Differential . Differential Comment Auto diff final Sodium 139 Potassium 3.7 Chloride 104 Carbon Dioxide 25.8 Anion Gap 9 BUN 10 Creatinine 1.00 Estimated GFR 81 L POC Glucose 95 Random Glucose 164 H Calcium 8.5 Total Bilirubin 1.3 H AST 41 H ALT 43 Alkaline Phosphatase 104 Total Protein 8.2 D Albumin 3.6 Lipase 302 - Impressions ITS Impressions Abdomen/Pelvis CT 11/20/17 09:14 CONCLUSION: No evidence of acute abdominal or pelvic process. No masses are identified. Hypodense liver compatible with fatty infiltration or hepatocellular disease. Discharge Plan - Discharge Disposition Patient Disposition: 01 Discharge Home - Discharge Condition Condition: Stable - Discharge Order Discharge Orders: Discharge Order (Routine); Ordered 11/22/17 Ordered By: Lito Zamora - Discharge Details Anticipated Discharge Date: 11/29/17 - Physicians Team Primary Care Provider: Primary Care Gamal,Lorena Attending Provider: Lito Zamora Other Providers: Alex Be MD
--- NOTE | 2017-11-22 10:00 | P.PNGI ---
Subjective Interval history: Pt resting in bed, father at bedside. Rates his pain 6/10 in mid abdomen but states it is improving since yesterday. Has been able to keep food and medications down. Denies nausea, vomiting. <Mattie Johnson - Last Filed: 11/22/17 09:57> Physical Exam Vital signs: Vital Signs 11/21/17 11:35 11/21/17 16:01 11/21/17 20:00 Temperature 97.6 F 98.0 F 98.5 F Pulse Rate 87 81 86 Respiratory Rate 20 16 17 Blood Pressure 133/81 120/75 121/68 Pulse Oximetry 97 97 97 11/22/17 00:00 11/22/17 04:00 11/22/17 08:00 Temperature 98.1 F 98.3 F 98.3 F Pulse Rate 69 74 75 Respiratory Rate 17 16 20 Blood Pressure 120/74 118/75 130/82 Pulse Oximetry 99 98 98 Intake & Output 11/21/17 11/22/17 11/22/17 18:59 06:59 18:59 Intake Total 120 / 120 Balance 120 / 120 Intake: Oral 120 / 120 Other: Date of Last Bowel Movement 11/18/17 - Constitutional no acute distress - Routine HEENT Exam Head: Present: normocephalic, atraumatic - Routine Respiratory Exam Present: CTA bilaterally. Absent: accessory muscle use - Routine Cardiovascular Exam Present: RRR - Routine Abdominal Exam Present: soft, normoactive bowel sounds, tenderness (mid abdominal tenderness ) . Absent: distended, rebound, guarding, firm - Routine Skin Exam Present: dry, warm - Routine Neurological Exam Present: alert, oriented X3 <Mattie Johnson - Last Filed: 11/22/17 09:57> Vital signs: Intake & Output 11/22/17 11/23/17 11/23/17 18:59 06:59 18:59 Intake Total 500 / 500 Balance 500 / 500 Intake: Oral 500 / 500 <Alex Be - Last Filed: 11/23/17 15:32> Results - Labs CBC & Chem 7: 11/21/17 10:00 11/21/17 10:00 Laboratory Results - last 24 hr 11/21/17 11/21/17 11/21/17 10:00 10:00 12:24 WBC 7.9 RBC 4.81 Hgb 15.7 Hct 45.4 MCV 94.3 MCH 32.6 MCHC 34.5 RDW 14.0 Plt Count 200 MPV 8.1 Neut % (Auto) 74.8 H Lymph % (Auto) 15.0 Rice % (Auto) 8.0 Eos % (Auto) 1.5 Baso % (Auto) 0.7 Neut # (Auto) 5.9 Lymph # (Auto) 1.2 Rice # (Auto) 0.6 Eos # (Auto) 0.1 Baso # (Auto) 0.1 WBC Differential . Differential Comment Auto diff final Sodium 139 Potassium 3.7 Chloride 104 Carbon Dioxide 25.8 Anion Gap 9 BUN 10 Creatinine 1.00 Estimated GFR 81 L POC Glucose 95 Random Glucose 164 H Calcium 8.5 Total Bilirubin 1.3 H AST 41 H ALT 43 Alkaline Phosphatase 104 Total Protein 8.2 D Albumin 3.6 Lipase 302 11/21/17 11/21/17 11/22/17 17:20 20:19 03:30 WBC RBC Hgb Hct MCV MCH MCHC RDW Plt Count MPV Neut % (Auto) Lymph % (Auto) Rice % (Auto) Eos % (Auto) Baso % (Auto) Neut # (Auto) Lymph # (Auto) Rice # (Auto) Eos # (Auto) Baso # (Auto) WBC Differential Differential Comment Sodium Potassium Chloride Carbon Dioxide Anion Gap BUN Creatinine Estimated GFR POC Glucose 79 239 H 95 Random Glucose Calcium Total Bilirubin AST ALT Alkaline Phosphatase Total Protein Albumin Lipase - Procedures No invasive procedures. <Mattie Johnson - Last Filed: 11/22/17 09:57> - Labs CBC & Chem 7: 11/21/17 10:00 11/21/17 10:00 <Alex Be - Last Filed: 11/23/17 15:32> Assessment and Plan (1) H. pylori infection Status: Acute Code(s): A04.8 - Other specified bacterial intestinal infections (2) Abdominal pain Status: Acute Code(s): R10.9 - Unspecified abdominal pain (3) Nausea & vomiting Status: Acute Code(s): R11.2 - Nausea with vomiting, unspecified (4) Diarrhea Status: Acute Code(s): R19.7 - Diarrhea, unspecified - Plan Assessment: - Abdominal pain with intractable nausea and vomiting x 2 days- States pain starts in epigastric area and radiates to his lower abdomen, constant, aching. Nausea and vomiting x 2 days, denies hematemesis and coffee ground emesis. Pt seen by our service in October EGD and colonoscopy --> Small hiatal hernia, mild gastritis in the gastric antrum, duodenal inflammation in the duodenal bulb, diverticulum in the sigmoid colon, pedunculated polyp in the ascending colon, internal hemorrhoids. Pathology (stomach antrum ) severe chronic active gastritis with focal intestinal metaplasia. Positive for numerous H. Pylori organisms (ascending colon polyp) adenomatous polyp. 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 Pt does reports symptoms improved after previous DC and began again 2 days ago - History of elevated LFTs- significant improved during this admission - Diarrhea- Pt reports 2-3 episodes a day for the past two days. Denies hematochezia and melena. - DM- recent seen with uncontrolled blood sugars, was off DM medication because states was confiscated [place] ([place]) Pt states some improvement in pain today. Denies nausea, vomiting. Able to keep his medication and food down. Plan: Advance diet Continue tx for H. Pylori Amoxicillin 500mg - Take 2 tabs BID Clarithromycin- 500 mg BID Protonix 40 mg BID x 10 days Reglan BGL control GI will sign off, please have pt follow up with GI after DC Pt has been seen and examined by myself and Dr. Be and this note is written on his behalf <Mattie Johnson - Last Filed: 11/22/17 09:57> (1) H. pylori infection Status: Acute Code(s): A04.8 - Other specified bacterial intestinal infections (2) Abdominal pain Status: Acute Code(s): R10.9 - Unspecified abdominal pain (3) Nausea & vomiting Status: Acute Code(s): R11.2 - Nausea with vomiting, unspecified (4) Diarrhea Status: Acute Code(s): R19.7 - Diarrhea, unspecified - Attending Attestation Patient seen and examined Agree with above Continue with current supportive care Monitor labs <Alex Be - Last Filed: 11/23/17 15:32>
== END 2017-11-22 10:20 | disposition home or self-care (01) ==
LOC: NEPC 08:44 → NEPFCDU 08:44 → NEDA 08:44 → NEPFCDU 15:28
PROVIDERS: ADMIT Internal Medicine; ATTEND Internal Medicine
DX: K31.84 Gastroparesis; D72.829 Elevated white blood cell count, unspecified; E86.0 Dehydration; E11.43 Type 2 diabetes mellitus with diabetic autonomic (poly)neuropathy; R11.2 Nausea with vomiting, unspecified; I10 Essential (primary) hypertension; R19.7 Diarrhea, unspecified; Z91.14 Patient's other noncompliance with medication regimen; E87.2 Acidosis; K21.9 Gastro-esophageal reflux disease without esophagitis